=== PATIENT | female | born 1935 | race Caucasian/White ===

== ENCOUNTER 2016-05-02 09:14 | Emergency (ER) | payer MEDICARE ==
[~2016-05-02] VITALS: Ht 162.6 cm; Wt 70.8 kg
[~2016-05-02 09:14] MED LIST: /ATOR40TA OR; CARI350T OR; COLA100C2 OR; GLUC850T OR; IBUP600T OR; LISI40TA OR; MILKSUS OR; TRAM50TA2 OR; VITA50TA12 OR
[2016-05-02] MEDS ORDERED: LOTRISONE CREAM 15 GM (BETAMETH/CLOTRIMAZOLE) TOP ONE (10:00)
--- NOTE | 2016-05-02 10:05 | EDDOCDS ---
Nurse's Notes [facility] Name: Zhane Garnica Age: 80 yrs Sex: Female : 1935 Arrival Date: 05/02/2016 Time: 09:14 Bed Triage 2 Private MD: NO PRIMARY PHYSICIAN, . Diagnosis: Tinea corporis-OVER RIGHT LOWER ABDOMEN Presentation: 05/02 09:18 Presenting complaint: Patient states: abdominal itching which began last night. Reports kr3 low abdomen is red. Adult Sepsis Screening: The patient does not have new or worsening altered mentation. Patient's respiratory rate is less than 22. Systolic blood pressure is greater than 100. Patient has a qSOFA score of 0- Negative Sepsis Screen. Suicide/Homicide risk assessment- the patient denies having any suicidal and/or homicidal ideations and does not present with any other emotional, behavioral or mental health complaints. Status: Patient is not a center sales and service associate or dependent. Transition of care: patient was not received from another setting of care. 09:18 Method Of Arrival: Walkin/Carried/Asstd kr3 09:18 Acuity: MARTA Level 4 kr3 Triage Assessment: 09:21 General: Appears in no apparent distress, comfortable, Behavior is cooperative. Pain: kr3 Denies pain. Respiratory: Respiratory effort is even, unlabored. Derm: Reports itching. Historical: - Allergies: no known allergies; - Home Meds: 1. metformin 500 mg Oral tab three times a day 2. fosinopril 40 mg oral tab 1 tab once daily 3. atorvastatin 80 mg oral tab 1 tab once daily - PMHx: Diabetes - NIDDM: controlled; Hypercholesterolemia; Hypertension; - PSHx: Cholecystectomy; Hysterectomy; - Social history: Smoking status: Patient uses tobacco products, current every day smoker. No barriers to communication noted, The patient speaks fluent Australian, Speaks appropriately for age. - Family history: Not pertinent. - : The pt / caregiver states he / she is not on anticoagulants. Home medication list is obtained from family members. - Exposure Risk Screening:: None identified. Screenin:03 Screening information is obtained from the patient. Fall risk: No risks identified. dsf Assistance ADL's: requires no assistance with activities of daily living. Abuse/DV Screen: The patient / caregiver reports he/she is: not in a situation that causes fear, pain or injury. Nutritional screening: No deficits noted. Advance Directives: Currently, there is a health care proxy, Evelin Cruz daughter . home support is adequate. Vital Signs: 09:16 BP 199 / 96; Pulse 69; Resp 16; Temp 98.0; Pulse Ox 98% ; Weight 70.76 kg; Height 5 ft. elp 4 in. (162.56 cm); Pain 0/10; 09:26 BP 170 / 100 LA (man/); kr3 09:16 Body Mass Index 26.78 (70.76 kg, 162.56 cm) elp Vitals: 09:16 Log In Time: May 02, 2016 at 09:14. elp ED Course: 09:16 Patient visited by Anh Mack PCA. elp 09:16 NO PRIMARY PHYSICIAN, . is Private Physician. elp 09:16 Patient visited by Anh Mack, HAWK. elp 09:16 Patient moved to Waiting elp 09:16 Patient moved to Pre RCE elp 09:19 Triage Initiated kr3 09:22 Patient moved to Triage 2 kr3 09:30 [facility] Milan [facility]. dt4 09:30 Jory Rueda MD is Attending Physician. dt4 09:30 Patient visited by Jada Milan PA-C. dt4 09:44 [facility] Payment Agreement was scanned into [employer] and attached to record. mpb 09:55 [facility] is Referral Physician. dt4 10:04 The patient / caregiver is instructed regarding the plan of care and ED course. dsf 10:04 No IV's were initiated during this patient's visit. No procedures done that require dsf assistance. Administered Medications: 10:05 Drug: Clotrimazole-Betamethasone Cream 1 %-0.05 % 1 applic Route: Topical; Site: dsf affected area; Order Results: There are currently no results for this order. Outcome: 09:56 Discharge ordered by Provider. dt4 10:04 No special radiology studies were completed. Property sent home with patient. dsf 10:04 Discharge Assessment: Patient awake, alert and oriented x 3. No cognitive and/or dsf functional deficits noted. Patient verbalized understanding of disposition instructions. patient administered narcotics - no. The following High Risk Discharge criteria are identified: None. Discharged to home ambulatory, with family. Condition: stable. Discharge instructions given to patient, Instructed on discharge instructions, follow up and referral plans. medication usage, Demonstrated understanding of instructions, medications, Pt was receptive of discharge instructions/ teaching. Prescriptions given X 1. 10:05 Patient left the ED. dsf Signatures: Vaishali Zamora,RN RN kr3 Bettina VivasRN RN dsf Anh Mack, HAWK CHEESE SUPERVISOR elp Jada Milan, PAYaz PAYaz dt4 Nando Shipman, Reg Reg mpb MTDD
--- NOTE | 2016-05-02 10:05 | EDDOCDS ---
Physician Documentation [facility] Name: Zhane Garnica Age: 80 yrs Sex: Female : 1935 Arrival Date: 05/02/2016 Time: 09:14 Bed Triage 2 Private MD: NO PRIMARY PHYSICIAN, . Disposition: 05/02/16 09:56 Discharged to Home/Self Care. Impression: Tinea corporis - OVER RIGHT LOWER ABDOMEN. - Condition is Stable. - Discharge Instructions: Cutaneous Candidiasis. - Prescriptions for clotrimazole- betamethasone 1-0.05 % Topical cream - apply 1 application by TOPICAL route 2 times per day for 14 days APPLY THIN LAYER TO AFFECTED AREA ONLY. WASH HANDS BEFORE AND AFTER USE.; 1 tube. - Medication Reconciliation, Local Pharmacy Hours form. - Follow up: Emergency Department; When: As needed; Reason: Worsening of conditions. Follow up: [facility]; When: Call to arrange an appointment; Reason: Wound/Symptom Recheck, Recheck today's complaints, Continuance of care, To establish care. - Problem is new. - Symptoms are unchanged. Historical: - Allergies: no known allergies; - Home Meds: 1. metformin 500 mg Oral tab three times a day 2. fosinopril 40 mg oral tab 1 tab once daily 3. atorvastatin 80 mg oral tab 1 tab once daily - PMHx: Diabetes - NIDDM: controlled; Hypercholesterolemia; Hypertension; - PSHx: Cholecystectomy; Hysterectomy; - Social history: Smoking status: Patient uses tobacco products, current every day smoker. No barriers to communication noted, The patient speaks fluent Croatian, Speaks appropriately for age. - Family history: Not pertinent. - : The pt / caregiver states he / she is not on anticoagulants. Home medication list is obtained from family members. - Exposure Risk Screening:: None identified. Vital Signs: 05/02 09:16 BP 199 / 96; Pulse 69; Resp 16; Temp 98.0; Pulse Ox 98% ; Weight 70.76 kg / 156 lbs; elp Height 5 ft. 4 in. (162.56 cm); Pain 0/10; 09:26 BP 170 / 100 LA (man/); kr3 09:16 Body Mass Index 26.78 (70.76 kg, 162.56 cm) elp MDM: 09:22 Recheck B/P ordered. dt4 09:39 Clotrimazole-Betamethasone Cream 1 %-0.05 % 1 applic Topical once; MAY NEED TO CALL dt4 PHARMACY ordered. 09:43 Financial registration complete. mpb 09:44 [facility] Payment Agreement was scanned into [employer] and attached to record. mpb Administered Medications: 10:05 Drug: Clotrimazole-Betamethasone Cream 1 %-0.05 % 1 applic Route: Topical; Site: f affected area; Signatures: Vaishali Zamora,RN RN kr3 Bettina Vivas RN RN dsf Jada Milan, PA-C PA-C dt4 Nando Shipman Reg Reg mpb The chart was reviewed and I authenticate all verbal orders and agree with the evaluation and treatment provided.Attachments: 09:44 [facility] Payment Agreement mpb MTDD
--- NOTE | 2016-05-04 12:38 | EDDOCDS ---
Nurse's Notes [facility] Name: Zhane Garnica Age: 80 yrs Sex: Female : 1935 Arrival Date: 05/02/2016 Time: 09:14 Bed Triage 2 Private MD: NO PRIMARY PHYSICIAN, . Diagnosis: Tinea corporis-OVER RIGHT LOWER ABDOMEN Presentation: 05/02 09:18 Presenting complaint: Patient states: abdominal itching which began last night. Reports kr3 low abdomen is red. Adult Sepsis Screening: The patient does not have new or worsening altered mentation. Patient's respiratory rate is less than 22. Systolic blood pressure is greater than 100. Patient has a qSOFA score of 0- Negative Sepsis Screen. Suicide/Homicide risk assessment- the patient denies having any suicidal and/or homicidal ideations and does not present with any other emotional, behavioral or mental health complaints. Status: Patient is not a director of customer service or dependent. Transition of care: patient was not received from another setting of care. 09:18 Method Of Arrival: Walkin/Carried/Asstd kr3 09:18 Acuity: MARTA Level 4 kr3 Triage Assessment: 09:21 General: Appears in no apparent distress, comfortable, Behavior is cooperative. Pain: kr3 Denies pain. Respiratory: Respiratory effort is even, unlabored. Derm: Reports itching. Historical: - Allergies: no known allergies; - Home Meds: 1. metformin 500 mg Oral tab three times a day 2. fosinopril 40 mg oral tab 1 tab once daily 3. atorvastatin 80 mg oral tab 1 tab once daily - PMHx: Diabetes - NIDDM: controlled; Hypercholesterolemia; Hypertension; - PSHx: Cholecystectomy; Hysterectomy; - Social history: Smoking status: Patient uses tobacco products, current every day smoker. No barriers to communication noted, The patient speaks fluent Georgian, Speaks appropriately for age. - Family history: Not pertinent. - : The pt / caregiver states he / she is not on anticoagulants. Home medication list is obtained from family members. - Exposure Risk Screening:: None identified. Screenin:03 Screening information is obtained from the patient. Fall risk: No risks identified. dsf Assistance ADL's: requires no assistance with activities of daily living. Abuse/DV Screen: The patient / caregiver reports he/she is: not in a situation that causes fear, pain or injury. Nutritional screening: No deficits noted. Advance Directives: Currently, there is a health care proxy, Evelin Cruz daughter . home support is adequate. Vital Signs: 09:16 BP 199 / 96; Pulse 69; Resp 16; Temp 98.0; Pulse Ox 98% ; Weight 70.76 kg; Height 5 ft. elp 4 in. (162.56 cm); Pain 0/10; 09:26 BP 170 / 100 LA (man/); kr3 09:16 Body Mass Index 26.78 (70.76 kg, 162.56 cm) elp Vitals: 09:16 Log In Time: May 02, 2016 at 09:14. elp ED Course: 09:16 Patient visited by Anh Mack PCA. elp 09:16 NO PRIMARY PHYSICIAN, . is Private Physician. elp 09:16 Patient visited by Anh Mack, HAWK. elp 09:16 Patient moved to Waiting elp 09:16 Patient moved to Pre RCE elp 09:19 Triage Initiated kr3 09:22 Patient moved to Triage 2 kr3 09:30 Jada Milan [facility]. dt4 09:30 Jory Rueda MD is Attending Physician. dt4 09:30 Patient visited by Jada Milan PA-C. dt4 09:44 [facility] Payment Agreement was scanned into [employer] and attached to record. mpb 09:55 [facility] is Referral Physician. dt4 10:04 The patient / caregiver is instructed regarding the plan of care and ED course. dsf 10:04 No IV's were initiated during this patient's visit. No procedures done that require dsf assistance. 10:38 T-Sheet-- Draft Copy was scanned into [employer] and attached to record. [facility] Administered Medications: 10:05 Drug: Clotrimazole-Betamethasone Cream 1 %-0.05 % 1 applic Route: Topical; Site: dsf affected area; Order Results: There are currently no results for this order. Outcome: 09:56 Discharge ordered by Provider. dt4 10:04 No special radiology studies were completed. Property sent home with patient. dsf 10:04 Discharge Assessment: Patient awake, alert and oriented x 3. No cognitive and/or dsf functional deficits noted. Patient verbalized understanding of disposition instructions. patient administered narcotics - no. The following High Risk Discharge criteria are identified: None. Discharged to home ambulatory, with family. Condition: stable. Discharge instructions given to patient, Instructed on discharge instructions, follow up and referral plans. medication usage, Demonstrated understanding of instructions, medications, Pt was receptive of discharge instructions/ teaching. Prescriptions given X 1. 10:05 Patient left the ED. dsf Signatures: Vaishali Zamora,RN RN kr3 Bettina Vivas RN RN dsf Anh Mack, RESIDENTIAL PROPERTY CONSULTANT RESIDENTIAL PROPERTY CONSULTANT elp Jada Milan, PA-C PA-C dt4 Nando Shipman, Reg Reg mpb Coleen Stewart Chart Complete MTDD
--- NOTE | 2016-05-04 12:38 | EDDOCDS ---
Physician Documentation [facility] Name: Zhane Garnica Age: 80 yrs Sex: Female : 1935 Arrival Date: 05/02/2016 Time: 09:14 Bed Triage 2 Private MD: NO PRIMARY PHYSICIAN, . Disposition: 05/02/16 09:56 Discharged to Home/Self Care. Impression: Tinea corporis - OVER RIGHT LOWER ABDOMEN. - Condition is Stable. - Discharge Instructions: Cutaneous Candidiasis. - Prescriptions for clotrimazole- betamethasone 1-0.05 % Topical cream - apply 1 application by TOPICAL route 2 times per day for 14 days APPLY THIN LAYER TO AFFECTED AREA ONLY. WASH HANDS BEFORE AND AFTER USE.; 1 tube. - Medication Reconciliation, Local Pharmacy Hours form. - Follow up: Emergency Department; When: As needed; Reason: Worsening of conditions. Follow up: [facility]; When: Call to arrange an appointment; Reason: Wound/Symptom Recheck, Recheck today's complaints, Continuance of care, To establish care. - Problem is new. - Symptoms are unchanged. Historical: - Allergies: no known allergies; - Home Meds: 1. metformin 500 mg Oral tab three times a day 2. fosinopril 40 mg oral tab 1 tab once daily 3. atorvastatin 80 mg oral tab 1 tab once daily - PMHx: Diabetes - NIDDM: controlled; Hypercholesterolemia; Hypertension; - PSHx: Cholecystectomy; Hysterectomy; - Social history: Smoking status: Patient uses tobacco products, current every day smoker. No barriers to communication noted, The patient speaks fluent Bulgarian, Speaks appropriately for age. - Family history: Not pertinent. - : The pt / caregiver states he / she is not on anticoagulants. Home medication list is obtained from family members. - Exposure Risk Screening:: None identified. Vital Signs: 05/02 09:16 BP 199 / 96; Pulse 69; Resp 16; Temp 98.0; Pulse Ox 98% ; Weight 70.76 kg / 156 lbs; elp Height 5 ft. 4 in. (162.56 cm); Pain 0/10; 09:26 BP 170 / 100 LA (man/); kr3 09:16 Body Mass Index 26.78 (70.76 kg, 162.56 cm) elp MDM: 09:22 Recheck B/P ordered. dt4 09:39 Clotrimazole-Betamethasone Cream 1 %-0.05 % 1 applic Topical once; MAY NEED TO CALL dt4 PHARMACY ordered. 09:43 Financial registration complete. mpb 09:44 [facility] Payment Agreement was scanned into [employer] and attached to record. mpb 10:38 T-Sheet-- Draft Copy was scanned into [employer] and attached to record. [facility] Administered Medications: 10:05 Drug: Clotrimazole-Betamethasone Cream 1 %-0.05 % 1 applic Route: Topical; Site: f affected area; Signatures: aVishali ZamoraRN RN kr3 Bettina VivasRN RN dsf Jada Milan PA-C PA-C dt4 Nando Shipman, Coleen Meyers The chart was reviewed and I authenticate all verbal orders and agree with the evaluation and treatment provided.Attachments: 09:44 [facility] Payment Agreement mpb 10:38 T-Sheet-- Draft Copy [facility] Chart Complete MTDD
--- NOTE | 2016-05-04 12:38 | EDDOCDS ---
Physician Documentation [facility] Name: Zhane Garnica Age: 80 yrs Sex: Female : 1935 Arrival Date: 05/02/2016 Time: 09:14 Bed Triage 2 Private MD: NO PRIMARY PHYSICIAN, . Disposition: 05/02/16 09:56 Discharged to Home/Self Care. Impression: Tinea corporis - OVER RIGHT LOWER ABDOMEN. - Condition is Stable. - Discharge Instructions: Cutaneous Candidiasis. - Prescriptions for clotrimazole- betamethasone 1-0.05 % Topical cream - apply 1 application by TOPICAL route 2 times per day for 14 days APPLY THIN LAYER TO AFFECTED AREA ONLY. WASH HANDS BEFORE AND AFTER USE.; 1 tube. - Medication Reconciliation, Local Pharmacy Hours form. - Follow up: Emergency Department; When: As needed; Reason: Worsening of conditions. Follow up: [facility]; When: Call to arrange an appointment; Reason: Wound/Symptom Recheck, Recheck today's complaints, Continuance of care, To establish care. - Problem is new. - Symptoms are unchanged. Historical: - Allergies: no known allergies; - Home Meds: 1. metformin 500 mg Oral tab three times a day 2. fosinopril 40 mg oral tab 1 tab once daily 3. atorvastatin 80 mg oral tab 1 tab once daily - PMHx: Diabetes - NIDDM: controlled; Hypercholesterolemia; Hypertension; - PSHx: Cholecystectomy; Hysterectomy; - Social history: Smoking status: Patient uses tobacco products, current every day smoker. No barriers to communication noted, The patient speaks fluent Yoruba, Speaks appropriately for age. - Family history: Not pertinent. - : The pt / caregiver states he / she is not on anticoagulants. Home medication list is obtained from family members. - Exposure Risk Screening:: None identified. Vital Signs: 05/02 09:16 BP 199 / 96; Pulse 69; Resp 16; Temp 98.0; Pulse Ox 98% ; Weight 70.76 kg / 156 lbs; elp Height 5 ft. 4 in. (162.56 cm); Pain 0/10; 09:26 BP 170 / 100 LA (man/); kr3 09:16 Body Mass Index 26.78 (70.76 kg, 162.56 cm) elp MDM: 09:22 Recheck B/P ordered. dt4 09:39 Clotrimazole-Betamethasone Cream 1 %-0.05 % 1 applic Topical once; MAY NEED TO CALL dt4 PHARMACY ordered. 09:43 Financial registration complete. mpb 09:44 [facility] Payment Agreement was scanned into [employer] and attached to record. mpb 10:38 T-Sheet-- Draft Copy was scanned into [employer] and attached to record. [facility] Administered Medications: 10:05 Drug: Clotrimazole-Betamethasone Cream 1 %-0.05 % 1 applic Route: Topical; Site: f affected area; Signatures: Vaishali ZamoraRN RN kr3 Bettina VivasRN RN dsf Jada Milan PA-C PA-C dt4 Nando Shipman, Coleen Meyers The chart was reviewed and I authenticate all verbal orders and agree with the evaluation and treatment provided.Attachments: 09:44 [facility] Payment Agreement mpb 10:38 T-Sheet-- Draft Copy [facility] Chart Complete MTDD
== END 2016-05-02 10:05 | disposition home or self-care (01) ==
LOC: M ED 09:14
DX: B35.4 Tinea corporis (principal); E11.9 Type 2 diabetes mellitus without complications; E78.00 Pure hypercholesterolemia, unspecified; I10 Essential (primary) hypertension; F17.210 Nicotine dependence, cigarettes, uncomplicated; Z79.84 Long term (current) use of oral hypoglycemic drugs; Z79.899 Other long term (current) drug therapy

== ENCOUNTER → 2016-05-17 | Outpatient (REF) | payer MEDICARE | LOC: M SFHCPLAZ 09:12 | PROVIDERS: ATTEND Family Medicine | DX: R30.0 Dysuria (principal); E11.9 Type 2 diabetes mellitus without complications; E78.5 Hyperlipidemia, unspecified; I10 Essential (primary) hypertension | CPT/HCPCS: 81001; 87086; G0463 ==

== ENCOUNTER 2016-06-05 08:09 | Emergency (ER) | payer MEDICARE ==
--- NOTE | 2016-06-05 09:27 | EDDOCDS ---
Nurse's Notes [facility] Name: Zhane Garnica Age: 80 yrs Sex: Female : 1935 Arrival Date: 06/05/2016 Time: 08:09 Bed I4 / M4 Private MD: Diagnosis: Cellulitis of abdominal wall-intertrigo Presentation: 06/05 08:14 Presenting complaint: Patient states: Recent treatment for a yeast infection. Not ck1 getting any better. Adult Sepsis Screening: The patient does not have new or worsening altered mentation. Patient's respiratory rate is less than 22. Systolic blood pressure is greater than 100. Patient has a qSOFA score of 0- Negative Sepsis Screen. Suicide/Homicide risk assessment- the patient denies having any suicidal and/or homicidal ideations and does not present with any other emotional, behavioral or mental health complaints. Status: Patient is not a claims service adjustor or dependent. Transition of care: patient was not received from another setting of care. 08:14 Acuity: MARTA Level 4 ck1 08:14 Method Of Arrival: Walkin/Carried/Asstd ck1 Triage Assessment: 08:17 General: Appears uncomfortable. Pain: Location: groin Pain currently is 10 out of 10 on ck1 a pain scale. Neurological: No deficits noted. : Reports pain vaginal itching. Derm: Skin is intact, is healthy with good turgor, Skin is pink, warm & dry. Musculoskeletal: Circulation, motion, and sensation intact Range of motion intact in all extremities. Historical: - Allergies: No known drug Allergies; - Home Meds: 1. atorvastatin 80 mg oral tab 1 tab once daily 2. metformin 500 mg Oral tab three times a day 3. fosinopril 40 mg oral tab 1 tab once daily - PMHx: Diabetes - NIDDM: controlled; Hypercholesterolemia; Hypertension; - PSHx: Cholecystectomy; Hysterectomy; - Social history: Smoking status: Patient uses tobacco products, heavy tobacco smoker. No barriers to communication noted, The patient speaks fluent Frisian, Speaks appropriately for age. - Family history: Not pertinent. - : The pt / caregiver states he / she is not on anticoagulants. Home medication list is obtained from the patient. - Exposure Risk Screening:: None identified. Screenin:23 Screening information is obtained from the patient. Primary language is Frisian. Fall dls risk: No risks identified. Assistance ADL's: requires no assistance with activities of daily living. Abuse/DV Screen: The patient / caregiver reports he/she is: not in a situation that causes fear, pain or injury. Nutritional screening: No deficits noted. Advance Directives: Currently, there is no health care proxy. There is no active DNR order. There is no living will. There is no Power of Technical Sales Associate. Advance directive information has not previously been placed in an [facility] medical record. home support is adequate. Assessment: 09:23 General: Appears in no apparent distress, Behavior is cooperative. Awake, alert, dls oriented. Skin warm and dry. Moves all extremities. Bilateral breath sounds clear. Respirations unlabored. Abdomen soft, non-tender. No apparent distress. The patient / caregiver is instructed regarding the plan of care and ED course. Vital Signs: 08:14 BP 138 / 72; Pulse 79; Resp 18; Temp 98.3(O); Pulse Ox 98% on R/A; Weight 77.11 kg; ck1 Height 5 ft. 4 in. (162.56 cm); Pain 10/10; 08:14 Body Mass Index 29.18 (77.11 kg, 162.56 cm) ck1 Vitals: 08:14 Log In Time: June 05, 2016 at 08:08. ck1 ED Course: 08:11 Patient visited by Kasandra Valdes. mm15 08:11 Patient moved to Waiting mm15 08:14 Triage Initiated ck1 08:18 Patient moved to I4 / M4 ck1 08:46 Vin[facility] Haas [facility] cc10 08:46 Jory Rueda MD is Attending Physician. cc10 08:58 Patient visited by Vinay Haas PA-C. cc10 08:58 Patient visited by Vinay Haas PA-C. cc10 09:17 [facility] Payment Agreement was scanned into [employer] and attached to record. gb 09:25 Accompanied by Family Member, Patient has correct armband on for positive dls identification. Bed in low position. Call light in reach. 09:25 No IV's were initiated during this patient's visit. No procedures done that require dls assistance. Order Results: There are currently no results for this order. Outcome: 09:13 Discharge ordered by Provider. cc10 09:23 The following High Risk Discharge criteria are identified: None. Discharged to home dls ambulatory. Condition: stable. Discharge instructions given to patient, Instructed on discharge instructions, follow up and referral plans. medication usage, Demonstrated understanding of instructions, medications, Pt was receptive of discharge instructions/ teaching. Prescriptions given X 2. No special radiology studies were completed. 09:25 Discharge Assessment: Patient awake, alert and oriented x 3. No cognitive and/or dls functional deficits noted. Patient verbalized understanding of disposition instructions. patient administered narcotics - no. Property sent home with patient. 09:25 Patient left the ED. dls Signatures: Shirley Echavarria, RN RN dls Barbara Ortiz, Reg Reg gb Marie Mendoza,RN RN ck1 Kasandra Valdes mm15 Vinay Haas, PA-C PA-C cc10 AYLA
--- NOTE | 2016-06-05 09:27 | EDDOCDS ---
Physician Documentation [facility] Name: Zhane Garnica Age: 80 yrs Sex: Female : 1935 Arrival Date: 06/05/2016 Time: 08:09 Bed I4 / M4 Private MD: Disposition: 06/05/16 09:13 Discharged to Home/Self Care. Impression: Cellulitis of abdominal wall - intertrigo. - Condition is Stable. - Discharge Instructions: Intertrigo, [id number]. - Prescriptions for Keflex 500 mg Oral Capsule - take 1 capsule by ORAL route every 8 hours for 10 days; 30 capsule. Nystatin- Triamcinolone 100,000-0.1 unit/g-% Topical Cream - apply 1 application by TOPICAL route 2 times per day apply to abdominal skin folds as directed.; 1 tube. - Medication Reconciliation, Local Pharmacy Hours form. - Follow up: Emergency Department; When: As needed; Reason: Worsening of conditions. Follow up: Private Physician; When: Call to arrange an appointment; Reason: Wound/Symptom Recheck, Recheck today's complaints, Worsening of conditions, Continuance of care. - Problem is an acute exacerbation. - Symptoms are unchanged. Historical: - Allergies: No known drug Allergies; - Home Meds: 1. atorvastatin 80 mg oral tab 1 tab once daily 2. metformin 500 mg Oral tab three times a day 3. fosinopril 40 mg oral tab 1 tab once daily - PMHx: Diabetes - NIDDM: controlled; Hypercholesterolemia; Hypertension; - PSHx: Cholecystectomy; Hysterectomy; - Social history: Smoking status: Patient uses tobacco products, heavy tobacco smoker. No barriers to communication noted, The patient speaks fluent Tajik, Speaks appropriately for age. - Family history: Not pertinent. - : The pt / caregiver states he / she is not on anticoagulants. Home medication list is obtained from the patient. - Exposure Risk Screening:: None identified. Vital Signs: 06/05 08:14 BP 138 / 72; Pulse 79; Resp 18; Temp 98.3(O); Pulse Ox 98% on R/A; Weight 77.11 kg / ck1 170 lbs; Height 5 ft. 4 in. (162.56 cm); Pain 10/10; 08:14 Body Mass Index 29.18 (77.11 kg, 162.56 cm) ck1 MDM: 09:07 Financial registration complete. gb 09:17 [facility] Payment Agreement was scanned into [employer] and attached to record. Signatures: Shirley Echavarria RN RN dls Barbara Ortiz, Reg Reg gb Marie Mendoza RN RN ck1 Vinay Haas, PAIvaC PAYaz cc10 The chart was reviewed and I authenticate all verbal orders and agree with the evaluation and treatment provided.Attachments: 09:17 [facility] Payment Agreement gb MTDD
--- NOTE | 2016-06-07 10:27 | EDDOCDS ---
Nurse's Notes [facility] Name: Zhane Garnica Age: 80 yrs Sex: Female : 1935 Arrival Date: 06/05/2016 Time: 08:09 Bed I4 / M4 Private MD: Diagnosis: Cellulitis of abdominal wall-intertrigo Presentation: 06/05 08:14 Presenting complaint: Patient states: Recent treatment for a yeast infection. Not ck1 getting any better. Adult Sepsis Screening: The patient does not have new or worsening altered mentation. Patient's respiratory rate is less than 22. Systolic blood pressure is greater than 100. Patient has a qSOFA score of 0- Negative Sepsis Screen. Suicide/Homicide risk assessment- the patient denies having any suicidal and/or homicidal ideations and does not present with any other emotional, behavioral or mental health complaints. Status: Patient is not a social services counselor or dependent. Transition of care: patient was not received from another setting of care. 08:14 Acuity: MARTA Level 4 ck1 08:14 Method Of Arrival: Walkin/Carried/Asstd ck1 Triage Assessment: 08:17 General: Appears uncomfortable. Pain: Location: groin Pain currently is 10 out of 10 on ck1 a pain scale. Neurological: No deficits noted. : Reports pain vaginal itching. Derm: Skin is intact, is healthy with good turgor, Skin is pink, warm & dry. Musculoskeletal: Circulation, motion, and sensation intact Range of motion intact in all extremities. Historical: - Allergies: No known drug Allergies; - Home Meds: 1. atorvastatin 80 mg oral tab 1 tab once daily 2. metformin 500 mg Oral tab three times a day 3. fosinopril 40 mg oral tab 1 tab once daily - PMHx: Diabetes - NIDDM: controlled; Hypercholesterolemia; Hypertension; - PSHx: Cholecystectomy; Hysterectomy; - Social history: Smoking status: Patient uses tobacco products, heavy tobacco smoker. No barriers to communication noted, The patient speaks fluent Belarusian, Speaks appropriately for age. - Family history: Not pertinent. - : The pt / caregiver states he / she is not on anticoagulants. Home medication list is obtained from the patient. - Exposure Risk Screening:: None identified. Screenin:23 Screening information is obtained from the patient. Primary language is Belarusian. Fall dls risk: No risks identified. Assistance ADL's: requires no assistance with activities of daily living. Abuse/DV Screen: The patient / caregiver reports he/she is: not in a situation that causes fear, pain or injury. Nutritional screening: No deficits noted. Advance Directives: Currently, there is no health care proxy. There is no active DNR order. There is no living will. 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 Advance directive information has not previously been placed in an [facility] medical record. home support is adequate. Assessment: 09:23 General: Appears in no apparent distress, Behavior is cooperative. Awake, alert, dls oriented. Skin warm and dry. Moves all extremities. Bilateral breath sounds clear. Respirations unlabored. Abdomen soft, non-tender. No apparent distress. The patient / caregiver is instructed regarding the plan of care and ED course. Vital Signs: 08:14 BP 138 / 72; Pulse 79; Resp 18; Temp 98.3(O); Pulse Ox 98% on R/A; Weight 77.11 kg; ck1 Height 5 ft. 4 in. (162.56 cm); Pain 10/10; 08:14 Body Mass Index 29.18 (77.11 kg, 162.56 cm) ck1 Vitals: 08:14 Log In Time: June 05, 2016 at 08:08. ck1 ED Course: 08:11 Patient visited by Kasandra Valdes. mm15 08:11 Patient moved to Waiting mm15 08:14 Triage Initiated ck1 08:18 Patient moved to I4 / M4 ck1 08:46 [facility] cc10 08:46 Jory Rueda MD is Attending Physician. cc10 08:58 Patient visited by Vinay Haas PA-C. cc10 08:58 Patient visited by iVnay Haas PA-C. cc10 09:17 [facility] Agreement was scanned into [employer] and attached to record. gb 09:25 Accompanied by Family Member, Patient has correct armband on for positive dls identification. Bed in low position. Call light in reach. 09:25 No IV's were initiated during this patient's visit. No procedures done that require dls assistance. 17:17 T-Sheet-- Draft Copy was scanned into [employer] and attached to record. klr Order Results: There are currently no results for this order. Outcome: 09:13 Discharge ordered by Provider. cc10 09:23 The following High Risk Discharge criteria are identified: None. Discharged to home dls ambulatory. Condition: stable. Discharge instructions given to patient, Instructed on discharge instructions, follow up and referral plans. medication usage, Demonstrated understanding of instructions, medications, Pt was receptive of discharge instructions/ teaching. Prescriptions given X 2. No special radiology studies were completed. 09:25 Discharge Assessment: Patient awake, alert and oriented x 3. No cognitive and/or dls functional deficits noted. Patient verbalized understanding of disposition instructions. patient administered narcotics - no. Property sent home with patient. 09:25 Patient left the ED. dls Signatures: Shirley cEhavarria, RN RN dls Barbara Ortiz, Nabil Reg Marie MendozaRN RN ck1 Kasandra Valdes mm15 Vinay Haas, PA-C PA-Cain cc10 Annabelle Foster Chart Complete MTDD
--- NOTE | 2016-06-07 10:27 | EDDOCDS ---
Physician Documentation [facility] Name: Zhane Garnica Age: 80 yrs Sex: Female : 1935 Arrival Date: 06/05/2016 Time: 08:09 Bed I4 / M4 Private MD: Disposition: 06/05/16 09:13 Discharged to Home/Self Care. Impression: Cellulitis of abdominal wall - intertrigo. - Condition is Stable. - Discharge Instructions: Intertrigo, [id number]. - Prescriptions for Keflex 500 mg Oral Capsule - take 1 capsule by ORAL route every 8 hours for 10 days; 30 capsule. Nystatin- Triamcinolone 100,000-0.1 unit/g-% Topical Cream - apply 1 application by TOPICAL route 2 times per day apply to abdominal skin folds as directed.; 1 tube. - Medication Reconciliation, Local Pharmacy Hours form. - Follow up: Emergency Department; When: As needed; Reason: Worsening of conditions. Follow up: Private Physician; When: Call to arrange an appointment; Reason: Wound/Symptom Recheck, Recheck today's complaints, Worsening of conditions, Continuance of care. - Problem is an acute exacerbation. - Symptoms are unchanged. Historical: - Allergies: No known drug Allergies; - Home Meds: 1. atorvastatin 80 mg oral tab 1 tab once daily 2. metformin 500 mg Oral tab three times a day 3. fosinopril 40 mg oral tab 1 tab once daily - PMHx: Diabetes - NIDDM: controlled; Hypercholesterolemia; Hypertension; - PSHx: Cholecystectomy; Hysterectomy; - Social history: Smoking status: Patient uses tobacco products, heavy tobacco smoker. No barriers to communication noted, The patient speaks fluent Hungarian, Speaks appropriately for age. - Family history: Not pertinent. - : The pt / caregiver states he / she is not on anticoagulants. Home medication list is obtained from the patient. - Exposure Risk Screening:: None identified. Vital Signs: 06/05 08:14 BP 138 / 72; Pulse 79; Resp 18; Temp 98.3(O); Pulse Ox 98% on R/A; Weight 77.11 kg / ck1 170 lbs; Height 5 ft. 4 in. (162.56 cm); Pain 10/10; 08:14 Body Mass Index 29.18 (77.11 kg, 162.56 cm) ck1 MDM: 09:07 Financial registration complete. gb : [facility] Payment Agreement was scanned into [employer] and attached to record. gb 17:17 T-Sheet-- Draft Copy was scanned into [employer] and attached to record. klr Signatures: Shirley Echavarria RN RN dls Barbara Ortiz, Reg Reg gb Fely-Anastasia,PILO Salazar RN ck1 Vinay Haas PA-C PAYaz cc10 Annabelle Fosterr The chart was reviewed and I authenticate all verbal orders and agree with the evaluation and treatment provided.Attachments: : [facility] Payment Agreement gb 17:17 T-Sheet-- Draft Copy klr Chart Complete MTDD
--- NOTE | 2016-06-07 10:27 | EDDOCDS ---
Physician Documentation [facility] Name: Zhane Garnica Age: 80 yrs Sex: Female : 1935 Arrival Date: 06/05/2016 Time: 08:09 Bed I4 / M4 Private MD: Disposition: 06/05/16 09:13 Discharged to Home/Self Care. Impression: Cellulitis of abdominal wall - intertrigo. - Condition is Stable. - Discharge Instructions: Intertrigo, [id number]. - Prescriptions for Keflex 500 mg Oral Capsule - take 1 capsule by ORAL route every 8 hours for 10 days; 30 capsule. Nystatin- Triamcinolone 100,000-0.1 unit/g-% Topical Cream - apply 1 application by TOPICAL route 2 times per day apply to abdominal skin folds as directed.; 1 tube. - Medication Reconciliation, Local Pharmacy Hours form. - Follow up: Emergency Department; When: As needed; Reason: Worsening of conditions. Follow up: Private Physician; When: Call to arrange an appointment; Reason: Wound/Symptom Recheck, Recheck today's complaints, Worsening of conditions, Continuance of care. - Problem is an acute exacerbation. - Symptoms are unchanged. Historical: - Allergies: No known drug Allergies; - Home Meds: 1. atorvastatin 80 mg oral tab 1 tab once daily 2. metformin 500 mg Oral tab three times a day 3. fosinopril 40 mg oral tab 1 tab once daily - PMHx: Diabetes - NIDDM: controlled; Hypercholesterolemia; Hypertension; - PSHx: Cholecystectomy; Hysterectomy; - Social history: Smoking status: Patient uses tobacco products, heavy tobacco smoker. No barriers to communication noted, The patient speaks fluent Urdu, Speaks appropriately for age. - Family history: Not pertinent. - : The pt / caregiver states he / she is not on anticoagulants. Home medication list is obtained from the patient. - Exposure Risk Screening:: None identified. Vital Signs: 06/05 08:14 BP 138 / 72; Pulse 79; Resp 18; Temp 98.3(O); Pulse Ox 98% on R/A; Weight 77.11 kg / ck1 170 lbs; Height 5 ft. 4 in. (162.56 cm); Pain 10/10; 08:14 Body Mass Index 29.18 (77.11 kg, 162.56 cm) ck1 MDM: 09:07 Financial registration complete. gb : [facility] Payment Agreement was scanned into [employer] and attached to record. gb 17:17 T-Sheet-- Draft Copy was scanned into [employer] and attached to record. klr Signatures: Shirley Echavarria RN RN dls Barbara Ortiz, Reg Reg gb Fely-Anastasia,PILO Salazar RN ck1 Vinay Haas PA-C PAYaz cc10 Annabelle Fosterr The chart was reviewed and I authenticate all verbal orders and agree with the evaluation and treatment provided.Attachments: : [facility] Payment Agreement gb 17:17 T-Sheet-- Draft Copy klr Chart Complete MTDD
== END 2016-06-05 09:25 | disposition home or self-care (01) ==
LOC: M ED 08:09
DX: L30.4 Erythema intertrigo (principal); E11.9 Type 2 diabetes mellitus without complications; E78.00 Pure hypercholesterolemia, unspecified; I10 Essential (primary) hypertension; F17.210 Nicotine dependence, cigarettes, uncomplicated; Z79.84 Long term (current) use of oral hypoglycemic drugs; Z79.899 Other long term (current) drug therapy

== ENCOUNTER 2016-08-24 15:03 | Emergency (ER) | payer MEDICARE ==
[~2016-08-24] VITALS: Ht 162.6 cm; Wt 81.6 kg
[2016-08-24] MEDS ORDERED: LABETALOL HCL 100 MG/20 ML VIAL IV STA (15:41)
[2016-08-24 16:22] LABS: BASO % 0.6 % (0.0-1.0); EOS # 0.3 K/mm3 (0.0-0.50); EOS % 4.1 % (0.0-3.0); LARGE UNSTAINED CELL # 0.1 K/mm3 (0.0-0.4); LARGE UNSTAINED CELL % 1.7 % (0.0-4.0); LYMPH # 2.1 K/mm3 (1.5-4.5); LYMPH % 30.3 % (24.0-44.0); MEAN CORPUSCULAR HEMOGLOBIN 32.2 pg (27.0-33.0); MEAN CORPUSCULAR HGB CONC 33.9 g/dl (32.0-36.5); MONO # 0.5 K/mm3 (0.0-0.8); MONO % 7.9 % (0.0-5.0); NEUTROPHILS # 3.7 K/mm3 (1.8-7.7); NEUTROPHILS % 55.4 % (36.0-66.0); PLATELET COUNT, AUTOMATED 201 k/mm3 (150-450); RED CELL DISTRIBUTION WIDTH 14.3 % (11.5-14.5); WHITE BLOOD COUNT 6.6 K/mm3 (4.0-10.0)
--- NOTE | 2016-08-24 16:22 | REP ---
CHEST: Single view of the chest is performed and compared to prior study of 05/30/2015. I see no evidence of acute infiltrate. Cardiomediastinal silhouette is unchanged. There is some tortuosity of the thoracic aorta. The heart does not appear to be significantly enlarged. IMPRESSION: No acute infiltrate. Signed by Baldemar Gillette MD 08/24/2016 07:52 P
[2016-08-24 16:27] LABS: INR 0.93
--- NOTE | 2016-08-24 16:41 | REP ---
CT CERVICAL SPINE WITHOUT CONTRAST: HISTORY: Trauma. There is no acute fracture. Disc bulges are present at the C3-4 and C6-7 levels. Disc bulges with associated osteophyte formation are present at the C4-5 and C5-6 levels. There is minimal narrowing of the spinal canal. Uncinate process and/or facet hypertrophy are present at the C2-3 through C7-T1 levels. These findings produce minimal to moderate narrowing of the neural foramina. The C3-4 through C7-T1 intervertebral discs are decreased in height consistent with disc degeneration. There are 2 mm of anterior subluxation of the C3 on 4, C4 on 5 and C7 on T1. IMPRESSION: 1. There is no acute fracture. 2. There is cervical spondylosis at the C2-3 through C7-1 levels. Signed by Demarcus Yusuf MD 08/24/2016 04:44 P
[2016-08-24 16:42] LABS: ANION GAP 7 MEQ/L (8-16); BLOOD UREA NITROGEN 24 MG/DL (7-18); CALCIUM LEVEL 8.3 MG/DL (8.8-10.2); CARBON DIOXIDE LEVEL 28 MEQ/L (21-32); CHLORIDE LEVEL 108 MEQ/L (98-107); CREATININE FOR GFR 1.43 MG/DL (0.55-1.02); GLOMERULAR FILTRATION RATE 37.5 (>32); GLUCOSE, FASTING 85 MG/DL (83-110); POTASSIUM SERUM 3.7 MEQ/L (3.5-5.1); SODIUM LEVEL 143 MEQ/L (136-145)
--- NOTE | 2016-08-24 16:44 | REP ---
CT HEAD WITHOUT CONTRAST: HISTORY: Trauma. COMPARISON: 03/17/2010. A small 9 mm acute intraparenchymal hematoma is present in the left basal ganglia. Areas of increased attentuation are present in the periventricular and subcortical white matter. This represents small vessel ischemic disease. There is no intraparenchymal mass, or midline shift. The ventricular system and cortical sulci are dilated consistent with moderate volume loss. There is no extracerebral collection. There is no fracture. IMPRESSION: 1. Small 9 mm acute left basal ganglia intraparenchymal hematoma. 2. Small vessel ischemic disease. 3. Moderate volume loss. Results were discussed with Dr. Sargent at 4:20 p.m. this date. Signed by Demarcus Yusuf MD 08/24/2016 04:48 P
[2016-08-24] MEDS ORDERED: ATOR1TAB18 PO (17:04)
[2016-08-24] MEDS ORDERED: FOSI40TA PO (17:04)
[2016-08-24] MEDS ORDERED: METF500T PO (17:04)
[2016-08-24 20:37] VITALS: BP 145/90
--- NOTE | 2016-08-25 08:11 | ECGEPIP ---
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
== END 2016-08-24 20:50 | disposition short-term general hospital (02) ==
LOC: M ED 16:23
DX: I62.9 Nontraumatic intracranial hemorrhage, unspecified (principal); R55 Syncope and collapse; E11.9 Type 2 diabetes mellitus without complications; I10 Essential (primary) hypertension

== ENCOUNTER 2016-11-17 09:14 | Emergency (ER) | payer MEDICARE ==
[~2016-11-17] VITALS: Ht 162.6 cm; Wt 59.1 kg
[~2016-11-17 09:14] MED LIST changes: +ATOR80TA59 PO; +FOSI40TA PO; +METF500T13 PO
[2016-11-17 09:15] VITALS: BP 159/83
[2017-02-23] MEDS ORDERED: MECL-68 PO (11:45)
== END 2016-11-17 11:25 | disposition left against medical advice (07) ==
LOC: M ED 09:14
DX: R30.0 Dysuria (principal); E11.9 Type 2 diabetes mellitus without complications; Z72.0 Tobacco use

== ENCOUNTER 2017-02-22 07:03 | Emergency (ER) | payer MEDICARE ==
[~2017-02-22] VITALS: Ht 162.6 cm; Wt 87.5 kg
[2017-02-22] MEDS ORDERED: NS 1,000 ML IV SCH (07:20)
[2017-02-22] MEDS ORDERED: MECLIZINE 25 MG TABLET PO ONE (07:30)
[2017-02-22] MEDS ORDERED: ONDANSETRON 4MG/2ML VIAL (J2405) IV ONE (07:30)
[2017-02-22 08:01] LABS: BASO % 0.4 % (0.0-1.0); EOS # 0.2 10^3/uL (0.0-0.50); EOS % 2.8 % (0.0-3.0); IMMATURE GRANULOCYTE % 0.4 % (0-0); LYMPH # 2.1 10^3/uL (1.5-4.5); LYMPH % 26.3 % (24.0-44.0); MEAN CORPUSCULAR HEMOGLOBIN 32.2 pg (27.0-33.0); MEAN CORPUSCULAR HGB CONC 33.1 g/dl (32.0-36.5); MEAN CORPUSCULAR VOLUME 97.5 fl (80.0-96.0); MONO # 0.7 10^3/uL (0.0-0.8); MONO % 8.3 % (0.0-5.0); NEUTROPHILS # 4.9 10^3/uL (1.8-7.7); NEUTROPHILS % 61.8 % (36.0-66.0); PLATELET COUNT, AUTOMATED 190 10^3/uL (150-450); RED CELL DISTRIBUTION WIDTH 12.7 % (11.5-14.5)
[2017-02-22 08:14] LABS: INR 0.95
[2017-02-22 08:26] LABS: ALBUMIN 3.4 GM/DL (3.2-5.2); ALBUMIN/GLOBULIN RATIO 1.17 (1.00-1.93); ALKALINE PHOSPHATASE 109 U/L (45-117); ALT/SGPT 16 U/L (12-78); ANION GAP 6 MEQ/L (8-16); AST/SGOT 12 U/L (7-37); BILIRUBIN,DIRECT 0.2 MG/DL (0.0-0.2); BILIRUBIN,TOTAL 0.7 MG/DL (0.2-1.0); BLOOD UREA NITROGEN 22 MG/DL (7-18); CALCIUM LEVEL 8.6 MG/DL (8.8-10.2); CARBON DIOXIDE LEVEL 29 MEQ/L (21-32); CHLORIDE LEVEL 107 MEQ/L (98-107); CREATININE FOR GFR 1.19 MG/DL (0.55-1.02); GLOMERULAR FILTRATION RATE 46.3 (>32); GLUCOSE, FASTING 104 MG/DL (83-110); POTASSIUM SERUM 4.2 MEQ/L (3.5-5.1); SODIUM LEVEL 142 MEQ/L (136-145); TOTAL PROTEIN 6.3 GM/DL (6.4-8.2)
--- NOTE | 2017-02-22 08:44 | REP ---
CT Head without contrast HISTORY: Dizziness COMPARISON: 08/24/2016 An area of decreased attenuation is present in the left basal ganglia. This represents an old hemorrhagic lacunar infarction. Areas of decreased attenuation are present in the periventricular and subcortical white matter. This represents small-vessel ischemic disease. There is no intraparenchymal hemorrhage, acute infarct, mass or midline shift. The ventricular system and cortical sulci are dilated consistent with moderate volume loss. There is no extra cerebral collection. There is no fracture. The visualized sinuses are clear. IMPRESSION: 1. Old left basal ganglia lacunar infarction. 2. Small vessel ischemic disease. 3. Moderate volume loss. Signed by Demarcus Yusuf MD 02/22/2017 08:36 A
--- NOTE | 2017-02-22 09:19 | ECGEPIP ---
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
[2017-02-22] MEDS ORDERED: MECL-68 PO (10:53)
[2017-02-22 12:29] VITALS: BP 172/98
[2017-02-23] MEDS ORDERED: MECL-68 PO (11:45)
== END 2017-02-22 12:34 | disposition home or self-care (01) ==
LOC: EDBD 07:03 → M ED 07:03
DX: R11.10 Vomiting, unspecified (principal); E11.9 Type 2 diabetes mellitus without complications; I10 Essential (primary) hypertension; E78.00 Pure hypercholesterolemia, unspecified; E78.4 Other hyperlipidemia
CPT/HCPCS: 36415; 70450; 80048; 80076; 82550; 82553; 83605; 83690; 84484; 85025; 85610; 86850; 86900; 86901; 93005; 93041; 96374; 99285; J2405

== ENCOUNTER → 2017-08-19 | Outpatient (REF) | payer MEDICARE ==
[2017-08-19 14:18] LABS: APPEARANCE, URINE CLEAR (CLEAR); BACTERIA, URINE AUTO 1+ (NEGATIVE); BILIRUBIN, URINE AUTO NEGATIVE (NEGATIVE); BLOOD, URINE BLOOD NEGATIVE (NEGATIVE); COLOR, URINE YELLOW (YELLOW); GLUCOSE, URINE (UA) AUTO NEGATIVE (NEGATIVE); KETONE, URINE AUTO NEGATIVE (NEGATIVE); LEUKOCYTE ESTERASE, URINE AUTO 3+ (NEGATIVE); NITRITE, URINE AUTO NEGATIVE (NEGATIVE); PROTEIN, URINE AUTO NEGATIVE (NEGATIVE); RBC, URINE AUTO 5 /HPF (0-3); SPECIFIC GRAVITY URINE AUTO 1.012 (1.002-1.035); SQUAMOUS EPITHELIAL CELL UR AU 1 /HPF (0-6); TRANSITIONAL EPITHELIAL AUTO 1 /HPF; UROBILINOGEN, URINE AUTO 0.2 mg/dL (0.0-2.0); WBC, URINE AUTO 90 /HPF (0-3)
== END ==
LOC: M SFHCPLAZ 13:23
DX: R30.9 Painful micturition, unspecified (principal)
CPT/HCPCS: 81001

== ENCOUNTER 2017-08-27 14:04 | Emergency (ER) | payer MEDICARE ==
[2017-08-27 15:07] LABS: BASO % 0.4 % (0.0-1.0); EOS # 0.1 10^3/uL (0.0-0.50); EOS % 1.1 % (0.0-3.0); HEMATOCRIT 33.4 % (36.0-47.0); IMMATURE GRANULOCYTE % 0.4 % (0-3.0); LYMPH # 1.4 10^3/uL (1.5-4.5); LYMPH % 15.1 % (24.0-44.0); MEAN CORPUSCULAR HEMOGLOBIN 31.7 pg (27.0-33.0); MEAN CORPUSCULAR HGB CONC 32.9 g/dl (32.0-36.5); MEAN CORPUSCULAR VOLUME 96.3 fl (80.0-96.0); MONO # 0.7 10^3/uL (0.0-0.8); MONO % 7.7 % (0.0-5.0); NEUTROPHILS # 6.9 10^3/uL (1.8-7.7); NEUTROPHILS % 75.3 % (36.0-66.0); PLATELET COUNT, AUTOMATED 193 10^3/uL (150-450); RED BLOOD COUNT 3.47 10^6/uL (4.00-5.40); WHITE BLOOD COUNT 9.2 10^3/uL (4.0-10.0)
[2017-08-27 15:31] LABS: ALBUMIN 3.4 GM/DL (3.2-5.2); ALBUMIN/GLOBULIN RATIO 1.06 (1.00-1.93); ALKALINE PHOSPHATASE 107 U/L (45-117); ALT/SGPT 14 U/L (12-78); ANION GAP 5 MEQ/L (8-16); AST/SGOT 13 U/L (7-37); BILIRUBIN,DIRECT 0.1 MG/DL (0.0-0.2); BILIRUBIN,TOTAL 0.5 MG/DL (0.2-1.0); BLOOD UREA NITROGEN 29 MG/DL (7-18); CALCIUM LEVEL 8.9 MG/DL (8.8-10.2); CARBON DIOXIDE LEVEL 29 MEQ/L (21-32); CHLORIDE LEVEL 108 MEQ/L (98-107); CREATININE FOR GFR 1.62 MG/DL (0.55-1.30); GLOMERULAR FILTRATION RATE 32.4 (>32); GLUCOSE, FASTING 108 MG/DL (70-100); LIPASE 118 U/L (73-393); POTASSIUM SERUM 4.7 MEQ/L (3.5-5.1); SODIUM LEVEL 142 MEQ/L (136-145); TOTAL PROTEIN 6.6 GM/DL (6.4-8.2)
[2017-08-27] MEDS: NS 500 ML IV (16:00)
[2017-08-27] MEDS: ONDANSETRON 4MG/2ML VIAL (J2405) IV (16:00)
[2017-08-27 16:50] LABS: APPEARANCE, URINE CLEAR (CLEAR); BACTERIA, URINE AUTO NEGATIVE (NEGATIVE); BILIRUBIN, URINE AUTO NEGATIVE (NEGATIVE); BLOOD, URINE BLOOD NEGATIVE (NEGATIVE); COLOR, URINE STRAW (YELLOW); GLUCOSE, URINE (UA) AUTO NEGATIVE (NEGATIVE); KETONE, URINE AUTO NEGATIVE (NEGATIVE); LEUKOCYTE ESTERASE, URINE AUTO NEGATIVE (NEGATIVE); MUCUS, URINE SMALL (NEGATIVE); NITRITE, URINE AUTO NEGATIVE (NEGATIVE); PROTEIN, URINE AUTO NEGATIVE (NEGATIVE); RBC, URINE AUTO 1 /HPF (0-3); SPECIFIC GRAVITY URINE AUTO 1.009 (1.002-1.035); SQUAMOUS EPITHELIAL CELL UR AU 0 /HPF (0-6); UROBILINOGEN, URINE AUTO 0.2 mg/dL (0.0-2.0); WBC, URINE AUTO 0 /HPF (0-3)
[2017-08-27] MEDS: HYDROCORTISONE 1% CREAM 30 GM TOP (17:45)
== END 2017-08-27 18:29 | disposition home or self-care (01) ==
LOC: M ED 14:04
DX: R11.2 Nausea with vomiting, unspecified (principal); R19.7 Diarrhea, unspecified; E11.9 Type 2 diabetes mellitus without complications; I10 Essential (primary) hypertension; M54.9 Dorsalgia, unspecified
CPT/HCPCS: J2405

== ENCOUNTER 2017-08-28 18:03 | Emergency (ER) | payer MEDICARE ==
[2017-08-28 19:52] LABS: BASO % 0.3 % (0.0-1.0); EOS # 0.5 10^3/uL (0.0-0.50); EOS % 5.1 % (0.0-3.0); HEMATOCRIT 33.2 % (36.0-47.0); IMMATURE GRANULOCYTE % 0.2 % (0-3.0); LYMPH # 3.2 10^3/uL (1.5-4.5); LYMPH % 31.3 % (24.0-44.0); MEAN CORPUSCULAR HEMOGLOBIN 31.9 pg (27.0-33.0); MEAN CORPUSCULAR HGB CONC 33.1 g/dl (32.0-36.5); MEAN CORPUSCULAR VOLUME 96.2 fl (80.0-96.0); MONO # 1.1 10^3/uL (0.0-0.8); MONO % 10.4 % (0.0-5.0); NEUTROPHILS # 5.4 10^3/uL (1.8-7.7); NEUTROPHILS % 52.7 % (36.0-66.0); PLATELET COUNT, AUTOMATED 200 10^3/uL (150-450); RED BLOOD COUNT 3.45 10^6/uL (4.00-5.40); RED CELL DISTRIBUTION WIDTH 13.2 % (11.5-14.5); WHITE BLOOD COUNT 10.3 10^3/uL (4.0-10.0)
[2017-08-28 20:15] LABS: ANION GAP 3 MEQ/L (8-16); BLOOD UREA NITROGEN 30 MG/DL (7-18); C REACTIVE PROTEIN QUANTITATIV 1.05 MG/DL (0.00-0.30); CALCIUM LEVEL 8.9 MG/DL (8.8-10.2); CARBON DIOXIDE LEVEL 31 MEQ/L (21-32); CHLORIDE LEVEL 104 MEQ/L (98-107); CREATININE FOR GFR 1.87 MG/DL (0.55-1.30); GLOMERULAR FILTRATION RATE 27.4 (>32); GLUCOSE, FASTING 109 MG/DL (70-100); POTASSIUM SERUM 4.3 MEQ/L (3.5-5.1); SODIUM LEVEL 138 MEQ/L (136-145)
[2017-08-28 20:37] LABS: ERYTHROCYTE SEDIMENTATION RATE 41 mm/hr (0-30)
[2017-08-28] MEDS: predniSONE 20 MG TAB PO (21:43)
[2017-08-28] MEDS: AUGMENTIN 875 MG TAB PO (21:43)
== END 2017-08-28 22:08 | disposition home or self-care (01) ==
LOC: M ED 18:03
DX: K11.20 Sialoadenitis, unspecified (principal); E11.9 Type 2 diabetes mellitus without complications; I10 Essential (primary) hypertension; E78.5 Hyperlipidemia, unspecified; J44.9 Chronic obstructive pulmonary disease, unspecified; K21.9 Gastro-esophageal reflux disease without esophagitis; F17.200 Nicotine dependence, unspecified, uncomplicated; Z79.84 Long term (current) use of oral hypoglycemic drugs; Z79.899 Other long term (current) drug therapy; Z88.1 Allergy status to other antibiotic agents
CPT/HCPCS: 70490

== ENCOUNTER 2017-09-22 18:23 | Emergency (ER) | payer MEDICARE ==
[2017-09-22 19:07] LABS: BASO % 0.2 % (0.0-1.0); EOS # 0.1 10^3/uL (0.0-0.50); HEMATOCRIT 30.5 % (36.0-47.0); HEMOGLOBIN 10.5 g/dl (12.0-15.5); IMMATURE GRANULOCYTE % 0.5 % (0-3.0); LYMPH # 1.5 10^3/uL (1.5-4.5); MEAN CORPUSCULAR HGB CONC 34.4 g/dl (32.0-36.5); MONO # 0.9 10^3/uL (0.0-0.8); MONO % 10.6 % (0.0-5.0); NEUTROPHILS # 5.6 10^3/uL (1.8-7.7); NEUTROPHILS % 69.7 % (36.0-66.0); PLATELET COUNT, AUTOMATED 256 10^3/uL (150-450); RED BLOOD COUNT 3.28 10^6/uL (4.00-5.40); RED CELL DISTRIBUTION WIDTH 12.5 % (11.5-14.5); WHITE BLOOD COUNT 8.1 10^3/uL (4.0-10.0)
[2017-09-22 19:26] LABS: AMORPHOUS SEDIMENT SMALL (NEGATIVE); APPEARANCE, URINE CLOUDY (CLEAR); BACTERIA, URINE AUTO 3+ (NEGATIVE); BILIRUBIN, URINE AUTO NEGATIVE (NEGATIVE); BLOOD, URINE BLOOD 1+ (NEGATIVE); COLOR, URINE YELLOW (YELLOW); GLUCOSE, URINE (UA) AUTO NEGATIVE (NEGATIVE); KETONE, URINE AUTO NEGATIVE (NEGATIVE); LEUKOCYTE ESTERASE, URINE AUTO 3+ (NEGATIVE); MUCUS, URINE SMALL (NEGATIVE); NITRITE, URINE AUTO POSITIVE (NEGATIVE); PROTEIN, URINE AUTO 2+ mg/dL (NEGATIVE); RBC, URINE AUTO 16 /HPF (0-3); SPECIFIC GRAVITY URINE AUTO 1.014 (1.002-1.035); SQUAMOUS EPITHELIAL CELL UR AU 1 /HPF (0-6); WBC, URINE AUTO TNTC /HPF (0-3)
[2017-09-22] MEDS: ACETAMINOPHEN 325 MG TAB PO (19:26)
[2017-09-22 19:27] LABS: LACTIC ACID SEPSIS PROTOCOL 0.7 MMOL/L (0.4-2.0)
[2017-09-22 19:29] LABS: ALBUMIN 2.9 GM/DL (3.2-5.2); ALBUMIN/GLOBULIN RATIO 0.78 (1.00-1.93); ALKALINE PHOSPHATASE 89 U/L (45-117); ALT/SGPT 14 U/L (12-78); ANION GAP 7 MEQ/L (8-16); AST/SGOT 11 U/L (7-37); BILIRUBIN,DIRECT 0.2 MG/DL (0.0-0.2); BILIRUBIN,TOTAL 0.7 MG/DL (0.2-1.0); BLOOD UREA NITROGEN 21 MG/DL (7-18); CALCIUM LEVEL 8.2 MG/DL (8.8-10.2); CARBON DIOXIDE LEVEL 23 MEQ/L (21-32); CHLORIDE LEVEL 108 MEQ/L (98-107); CREATININE FOR GFR 1.62 MG/DL (0.55-1.30); GLOMERULAR FILTRATION RATE 32.4 (>32); GLUCOSE, FASTING 117 MG/DL (70-100); POTASSIUM SERUM 3.9 MEQ/L (3.5-5.1); SODIUM LEVEL 138 MEQ/L (136-145); TOTAL PROTEIN 6.6 GM/DL (6.4-8.2)
[2017-09-22] MEDS: CIPROFLOXACIN 500 MG TAB PO (19:58)
[2017-09-22] MEDS: PHENAZOPYRIDINE 100 MG TAB PO (19:58)
== END 2017-09-22 20:25 | disposition home or self-care (01) ==
LOC: M ED 18:23
DX: N39.0 Urinary tract infection, site not specified (principal); J44.9 Chronic obstructive pulmonary disease, unspecified; I25.10 Atherosclerotic heart disease of native coronary artery without angina pectoris; E11.9 Type 2 diabetes mellitus without complications; I10 Essential (primary) hypertension; E78.00 Pure hypercholesterolemia, unspecified; Z79.899 Other long term (current) drug therapy; Z79.84 Long term (current) use of oral hypoglycemic drugs; F17.210 Nicotine dependence, cigarettes, uncomplicated
CPT/HCPCS: 71046

== ENCOUNTER → 2017-12-16 | Outpatient (REF) | payer MEDICARE ==
[2017-12-16 19:04] LABS: APPEARANCE, URINE CLEAR (CLEAR); BACTERIA, URINE AUTO NEGATIVE (NEGATIVE); BILIRUBIN, URINE AUTO NEGATIVE (NEGATIVE); BLOOD, URINE BLOOD NEGATIVE (NEGATIVE); COLOR, URINE YELLOW (YELLOW); GLUCOSE, URINE (UA) AUTO NEGATIVE (NEGATIVE); KETONE, URINE AUTO NEGATIVE (NEGATIVE); LEUKOCYTE ESTERASE, URINE AUTO 1+ (NEGATIVE); NITRITE, URINE AUTO NEGATIVE (NEGATIVE); PROTEIN, URINE AUTO NEGATIVE (NEGATIVE); RBC, URINE AUTO 0 /HPF (0-3); SPECIFIC GRAVITY URINE AUTO 1.008 (1.002-1.035); SQUAMOUS EPITHELIAL CELL UR AU 0 /HPF (0-6); UROBILINOGEN, URINE AUTO 0.2 mg/dL (0.0-2.0); WBC, URINE AUTO 7 /HPF (0-3)
== END ==
LOC: M LAB REF 18:43
DX: M54.5 Low back pain (principal)
CPT/HCPCS: 81001

== ENCOUNTER → 2018-01-05 | Outpatient (CLI) | payer MEDICARE | LOC: M RAD 09:28 | DX: M54.5 Low back pain (principal); E11.65 Type 2 diabetes mellitus with hyperglycemia; R41.3 Other amnesia ==

== ENCOUNTER → 2018-01-05 | Outpatient (CLI) | payer MEDICARE ==
[2018-01-05 11:14] LABS: BASO # 0.1 10^3/uL (0.0-0.2); BASO % 0.7 % (0.0-1.0); EOS # 0.4 10^3/uL (0.0-0.50); EOS % 5.3 % (0.0-3.0); HEMATOCRIT 33.9 % (36.0-47.0); HEMOGLOBIN 10.7 g/dl (12.0-15.5); IMMATURE GRANULOCYTE % 0.2 % (0-3.0); LYMPH # 2.7 10^3/uL (1.5-4.5); LYMPH % 32.2 % (24.0-44.0); MEAN CORPUSCULAR HEMOGLOBIN 30.7 pg (27.0-33.0); MEAN CORPUSCULAR HGB CONC 31.6 g/dl (32.0-36.5); MEAN CORPUSCULAR VOLUME 97.4 fl (80.0-96.0); MONO # 0.8 10^3/uL (0.0-0.8); MONO % 10.1 % (0.0-5.0); NEUTROPHILS # 4.2 10^3/uL (1.8-7.7); NEUTROPHILS % 51.5 % (36.0-66.0); PLATELET COUNT, AUTOMATED 227 10^3/uL (150-450); RED BLOOD COUNT 3.48 10^6/uL (4.00-5.40); RED CELL DISTRIBUTION WIDTH 13.2 % (11.5-14.5); WHITE BLOOD COUNT 8.2 10^3/uL (4.0-10.0)
[2018-01-05 12:17] LABS: ALBUMIN 3.1 GM/DL (3.2-5.2); ALBUMIN/GLOBULIN RATIO 0.94 (1.00-1.93); ALKALINE PHOSPHATASE 107 U/L (45-117); ALT/SGPT 12 U/L (12-78); ANION GAP 7 MEQ/L (8-16); AST/SGOT 11 U/L (7-37); BILIRUBIN,TOTAL 0.6 MG/DL (0.2-1.0); BLOOD UREA NITROGEN 16 MG/DL (7-18); CALCIUM LEVEL 8.6 MG/DL (8.8-10.2); CARBON DIOXIDE LEVEL 28 MEQ/L (21-32); CHLORIDE LEVEL 107 MEQ/L (98-107); CHOLESTEROL LEVEL 147 MG/DL (<200); CHOLESTEROL RISK RATIO 4.083 (<5); CREATININE FOR GFR 1.36 MG/DL (0.55-1.30); ESTIMATED AVERAGE GLUCOSE 100 MG/DL (60-110); GLOMERULAR FILTRATION RATE 39.6 (>32); GLUCOSE, FASTING 74 MG/DL (70-100); HDL CHOLESTEROL 36 MG/DL (>40); HEMOGLOBIN A1c 5.1 %; LDL CHOLESTEROL 84 MG/DL (<100); NON-HDL-C 111 MG/DL; POTASSIUM SERUM 4.3 MEQ/L (3.5-5.1); SODIUM LEVEL 142 MEQ/L (136-145); TOTAL PROTEIN 6.4 GM/DL (6.4-8.2); TRIGLYCERIDES LEVEL 134 MG/DL (<150)
== END ==
LOC: M LAB 09:34
DX: M54.5 Low back pain (principal); E11.65 Type 2 diabetes mellitus with hyperglycemia; R41.3 Other amnesia
CPT/HCPCS: 70450

== ENCOUNTER 2018-05-17 08:38 | Emergency (ER) | payer MEDICAID, MEDICARE ==
[~2018-05-17] VITALS: Ht 167.6 cm; Wt 104.5 kg
[~2018-05-17 08:38] MED LIST changes: +AUGM875T28 PO; +CIPR-249 PO; +DEBR6.5S4 PO; -FOSI40TA PO; +FOSI40TA2 PO; +MECL-68 PO; +PRED20TA PO; +PYRI1TAB5 PO; +TYLE325T5 PO; +[UNRECOGNIZED DRUG - OTHER] PO
[2018-05-17] MEDS ORDERED: LISI10TA4 PO (08:59)
--- NOTE | 2018-05-17 09:38 | REP ---
LEFT ANKLE, FOUR VIEWS: HISTORY: Trauma. There is no acute fracture or dislocation. The joint space is normal in appearance. IMPRESSION: There is no acute fracture or dislocation. Electronically Signed by Demarcus Yusuf MD 05/17/2018 09:55 A
--- NOTE | 2018-05-17 09:46 | REP ---
RIGHT SHOULDER, THREE VIEWS: HISTORY: Trauma. There is no acute fracture or dislocation. There is mild narrowing of the acromioclavicular joint space. The glenohumeral joint space is normal in appearance. IMPRESSION: There is no acute fracture or dislocation. Electronically Signed by Demarcus Yusuf MD 05/17/2018 09:55 A
[2018-05-17] MEDS ORDERED: APAP500T10 PO (09:51)
[2018-05-17] MEDS ORDERED: ROLLMIS2 XX ×2 (12:34→12:37)
[2018-05-17 12:36] VITALS: BP 142/76
== END 2018-05-17 12:43 | disposition home or self-care (01) ==
LOC: EDBD 08:38 → M ED 08:38
DX: S40.011A Contusion of right shoulder, initial encounter (principal); S93.402A Sprain of unspecified ligament of left ankle, initial encounter; Y92.009 Unspecified place in unspecified non-institutional (private) residence as the place of occurrence of the external cause; W18.2XXA Fall in (into) shower or empty bathtub, initial encounter

== ENCOUNTER 2018-06-26 07:50 | Inpatient (IN) | payer MEDICARE ==
[~2018-06-26] VITALS: Ht 167.6 cm; Wt 86.8 kg
[~2018-06-26 07:50] MED LIST changes: +APAP500T10 PO; +LISI10TA4 PO; +ROLLMIS2 XX
[2018-06-26] MEDS ORDERED: LIDOCAINE 2% 5ML JELLY UROJET TOP ONE (08:15)
[2018-06-26] MEDS ORDERED: ONDANSETRON 4MG/2ML VIAL (J2405) IV ONE (08:30)
--- NOTE | 2018-06-26 08:35 | REP ---
CT brain without contrast: History: Altered mental status. Comparison head CT study January 05, 2018. CT findings: Preliminary digital lateral fence erector supervisor radiograph is unremarkable. Visualized paranasal sinuses are clear. Vascular calcification is again noted in the distal carotid and distal vertebral arteries. No bony calvarial defect or fracture is seen. On soft tissue windows settings, there is moderate diffuse cerebral atrophy. Periventricular white matter low density is again seen bilaterally in the frontal lobes consistent with fairly extensive small vessel atherosclerotic changes. No evidence of acute infarction is seen. No hemorrhage is noted. No mass or extra-axial fluid collection is seen. Impression: Diffuse moderate atrophy. Small vessel changes. Vascular calcification. No acute intracranial abnormality. Electronically Signed by Cresencio Akhtar MD 06/26/2018 12:42 P
[2018-06-26 08:41] LABS: BASO % 0.4 % (0.0-1.0); EOS # 0.3 10^3/uL (0.0-0.50); HEMATOCRIT 34.1 % (36.0-47.0); HEMOGLOBIN 10.9 g/dl (12.0-15.5); LYMPH # 1.6 10^3/uL (1.5-4.5); LYMPH % 19.6 % (24.0-44.0); MEAN CORPUSCULAR HEMOGLOBIN 30.2 pg (27.0-33.0); MEAN CORPUSCULAR VOLUME 94.5 fl (80.0-96.0); MONO # 0.8 10^3/uL (0.0-0.8); MONO % 10.1 % (0.0-5.0); NEUTROPHILS # 5.5 10^3/uL (1.8-7.7); NEUTROPHILS % 65.4 % (36.0-66.0); PLATELET COUNT, AUTOMATED 221 10^3/uL (150-450); RED BLOOD COUNT 3.61 10^6/uL (4.00-5.40); WHITE BLOOD COUNT 8.4 10^3/uL (4.0-10.0)
[2018-06-26] MEDS ORDERED: NS 1,000 ML IV ONE (09:00)
--- NOTE | 2018-06-26 09:06 | REP ---
PORTABLE CHEST: Single view of the chest is performed. COMPARISON: 09/22/2017 There is mild cardiomegaly. There is no acute infiltrate. There is mild bibasilar interstitial prominence, which is chronic and stable. There is tortuosity of the thoracic aorta. The mediastinal silhouette is unchanged. IMPRESSION: Mild cardiomegaly and stable chronic findings without acute infiltrate. Electronically Signed by Baldemar Gillette MD 06/26/2018 05:36 P
[2018-06-26 09:10] LABS: ACETAMINOPHEN LEVEL < 2.0 UG/ML (10.0-30.0); ALBUMIN 3.3 GM/DL (3.2-5.2); ALT/SGPT 15 U/L (12-78); BILIRUBIN,DIRECT 0.1 MG/DL (0.0-0.2); BILIRUBIN,TOTAL 0.4 MG/DL (0.2-1.0); BLOOD UREA NITROGEN 29 MG/DL (7-18); CALCIUM LEVEL 8.7 MG/DL (8.8-10.2); CARBON DIOXIDE LEVEL 26 MEQ/L (21-32); CHLORIDE LEVEL 107 MEQ/L (98-107); CPK CREATINE PHOSPHOKINASE 58 U/L (26-192); CREATININE FOR GFR 1.45 MG/DL (0.55-1.30); ETHYL ALCOHOL (ETHANOL) < 0.003 % (0.000-0.010); GLOMERULAR FILTRATION RATE 36.8 (>32); GLUCOSE, FASTING 104 MG/DL (70-100); MB/CK RELATIVE INDEX 3.97 (< OR =4); POTASSIUM SERUM 4.3 MEQ/L (3.5-5.1); SALICYLATE LEVEL 3.6 MG/DL (5.0-30.0); SODIUM LEVEL 139 MEQ/L (136-145); TOTAL PROTEIN 6.6 GM/DL (6.4-8.2); TROPONIN I < 0.02 NG/ML (< 0.10)
[2018-06-26 09:12] LABS: AMPHETAMINES LEVEL URINE NEGATIVE (NEGATIVE); BARBITURATES URINE NEGATIVE (NEGATIVE); BENZODIAZEPINES URINE NEGATIVE (NEGATIVE); CANNABINOIDS URINE NEGATIVE (NEGATIVE); COCAINE METABOLITE URINE NEGATIVE (NEGATIVE); METHADONE URINE NEGATIVE (NEGATIVE); OPIATES URINE NEGATIVE (NEGATIVE); PHENCYCLIDINE URINE NEGATIVE (NEGATIVE)
[2018-06-26] MEDS ORDERED: FOSI10TA2 PO (09:13)
[2018-06-26] MEDS ORDERED: ACET-683 PO (09:13)
[2018-06-26] MEDS ORDERED: FOSI40TA2 PO (09:15)
[2018-06-26 09:18] LABS: ABG BASE EXCESS -2.5 (-2.0-2.0); ABG HCO3 22.6 MEQ/L (22.0-26.0); ABG O2 SATURATION 96.6 % (95.0-99.0); ABG PARTIAL PRESSURE O2 87.7 mmHg (75.0-100.0); ABG STANDARD HCO3 22.4 MEQ/L (22.0-26.0); ABG TOTAL CO2 23.8 MEQ/L (23.0-31.0)
[2018-06-26] MEDS ORDERED: ISOVUE-370 76% 100ML VIAL (Q9967) As Ordered ONE (09:27)
[2018-06-26 10:24] LABS: FREE T4 1.07 NG/DL (0.76-1.46)
--- NOTE | 2018-06-26 10:33 | REP ---
CT ABDOMEN AND PELVIS WITH IV CONTRAST: TECHNIQUE: Axial contrast enhanced images from the lung bases to the pubic symphysis using 100 mL Isovue 370 intravenous contrast material with multiplanar reformations. COMPARISON: 11/19/2013 Visualized lung bases demonstrate mild fibroatelectatic change. A few cysts are seen in the dome of the liver on the right, the largest measures 2 cm in diameter. Spleen, adrenals and pancreas are unremarkable. There is no hydronephrosis bilaterally. There appear to be a view scattered tiny cysts in the kidneys bilaterally. Left kidney appears mildly atrophic. There is atherosclerotic calcification of the abdominal aorta. Aortobiiliac stent is again seen unchanged in position. However, the right common iliac artery diameter has increased from about 2.6 cm to about 3.5 cm. Inferiorly, focal metallic structures seen causing extensive adjacent artifact. Just inferior to this, within the lumen of the dilated distal common iliac artery, there is some ill-defined contrast suggesting endoleak. Old postsurgical scarring is seen in the anterior abdominal wall midline. No bowel wall thickening is seen. No pelvic mass is seen. Urinary bladder is mildly distended and grossly unremarkable. There is a small hiatal hernia. IMPRESSION: Small hiatal hernia. Status post cholecystectomy without biliary dilatation. No free air or free fluid. No adenopathy. Aortobiiliac stent noted. Since the prior study of 11/19/2013, the [place] right common iliac artery has increased in size and now measures approximately 3.5 cm in diameter. 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 Electronically Signed by Baldemar Gillette MD 06/26/2018 05:38 P
[2018-06-26 11:01] LABS: TOTAL 25(OH) VITAMIN D 14.7 NG/ML (30.0-100.0); TOTAL T3 135.7 NG/DL (60.0-181.0)
[2018-06-26 11:02] LABS: VITAMIN B12 LEVEL 285 PG/ML (247-911)
[2018-06-26 13:30] VITALS: BP 134/77
[2018-06-26] MEDS ORDERED: GLUCOSE 4 GM CHEW TABLET PO PRN (17:45)
[2018-06-26] MEDS ORDERED: GLUCAGON FOR INJ 1 MG VIAL (J1610) SC PRN (17:45)
[2018-06-26] MEDS ORDERED: DEXTROSE 50% 50 ML SYRINGE IV PRN (17:45)
--- NOTE | 2018-06-26 17:55 | HPEPDOC ---
General Date of Admission Jun 26, 2018 at 11:02 Chief Complaint The patient is a 82-year-old female who Presented to the ER after patient has be en experiencing vomiting this morning and a progressive decline in her functional status. History of Present Illness Patient is an 82-year-old female with a PMHx of HTN, DLP, DM2, COPD, JUNIOR on CPAP (not compliant), Active smoker and GERD who presented to the ER afte r she had a vomiting episode this morning.] Patient was brought in by her daughter, Evelin Cruz ([phone]). Patient is a poor historian and information was gathered her daughter who is also her he althcare proxy. Patients daughter has indicated that over the last 2 months. Patient has been having a progressive decline in her functional status, is having difficulty with her activities of daily living, as indicated, and the patient is unable to care for herself. She has noted that she is the primary caregiver for the patient, however, she is unable to do so any longer given the increase in requirement. Upon questioning the patient she denies any chest pain, shortness of breath, palpitations, abdominal pain, constipation, diarrhea or discomfort with urination. Patient does report an episode of vomiting earlier today. 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 Wilson Sewell in [place]; reported to be approximately 7 cm in size Abdominal aortic aneurysm status post endovascular stent placement including both iliac arteries x2 Cholecystectomy Family History - Noncontributory given advanced age Social History - Denies the use of alcohol or illicit drugs; patient is an active smoker, approximately 60 years at 2.5 PPD - Denies recent travel or sick contacts - Lives with daughter Review of Systems Other systems 10 point review systems negative otherwise stated in HPI Vital Signs - Vitals: BP 134/77, HR 73, RR 18, Sat 96%RA, Temp 97.1F - General: Lying in bed, No acute distress, Speaking in full sentences, AAOx1 (only to person) - HEENT: NC, AT, PERRLA - CVS: RRR, +S1S2, - Murmurs / rubs / gallops - Lungs: Fair air entry bilaterally, Clear to auscultation, No wheezing / rales / rhonchi - Abdomen: Soft, Non-distended, Non-tender - Extremities: No lower extremity edema, No calf tenderness - Neuro: 5/5 strength at upper and lower extremities bilaterally - Skin: No visible rashes Laboratory Data Labs 24H Laboratory Tests 2 06/26/18 08:23: Vitamin B12 Level 285, 25-Hydroxy Vitamin D Total 14.7L, Free Thyroxine 1.07, Total Triiodothyronine 135.7, Syphilis Serology NONREACTIVE 06/26/18 08:25: Immature Granulocyte % (Auto) 0.5, White Blood Count 8.4, Red Blood Count 3.61L, Hemoglobin 10.9L, Hematocrit 34.1L, Mean Corpuscular Volume 94.5, Mean Corpuscular Hemoglobin 30.2, Mean Corpuscular Hemoglobin Concent 32.0, Red Cell Distribution Width 13.8, Platelet Count 221, Neutrophils (%) (Auto) 65.4, Lymphocytes (%) (Auto) 19.6L, Monocytes (%) (Auto) 10.1H, Eosinophils (%) (Auto) 4.0H, Basophils (%) (Auto) 0.4, Neutrophils # (Auto) 5.5, Lymphocytes # (Auto) 1.6, Monocytes # (Auto) 0.8, Eosinophils # (Auto) 0.3, Basophils # (Auto) 0.0, Nucleated Red Blood Cells % (auto) 0.0, Anion Gap 6L, Glomerular Filtration Rate 36.8, Lactic Acid Level 1.5, Calcium Level 8.7L, Aspartate Amino Transf (AST/SGOT) 17, Alanine Aminotransferase (ALT/SGPT) 15, Alkaline Phosphatase 137H, Total Bilirubin 0.4, Direct Bilirubin 0.1, Ammonia < 10, Total Creatine Kinase 58, Creatine Kinase MB 2.0, Creatine Kinase MB Relative Index 3.97, Troponin I < 0.02, Total Protein 6.6, Albumin 3.3, Albumin/Globulin Ratio 1.00, Thyroid Stimulating Hormone (TSH) 7.930H, Salicylates Level 3.6L, Acetaminophen Level < 2.0L, Ethyl Alcohol Level < 0.003 06/26/18 08:36: Urine Color YELLOW, Urine Appearance CLEAR, Urine pH 5.0, Urine Specific [place] 1.014, Urine Protein 1+H, Urine Glucose (UA) NEGATIVE, Urine Ketones NEGATIVE, Urine Blood NEGATIVE, Urine Nitrite NEGATIVE, Urine Bilirubin NEGATIVE, Urine Urobilinogen 0.2, Urine Leukocyte Esterase NEGATIVE, Urine WBC (Auto) 1, Urine RBC (Auto) 1, Urine Hyaline Casts (Auto) 1, Urine Bacteria (Auto) NEGATIVE, Urine Squamous Epithelial Cells 1, Urine Mucus (Auto) SMALL, Urine Sperm (Auto) , Urine Amphetamines Screen NEGATIVE, Urine Benzodiazepines Screen NEGATIVE, Urine Opiates Screen NEGATIVE, Urine Methadone Screen NEGATIVE, Urine Barbiturates Screen NEGATIVE, Urine Phencyclidine Screen NEGATIVE, Urine Cocaine Metabolite Screen NEGATIVE, Urine Cannabinoids Screen NEGATIVE 06/26/18 08:58: Blood Gas Bicarbonate Standard 22.4, Arterial Blood pH 7.370, Arterial Blood Partial Pressure CO2 40.0, Arterial Blood Partial Pressure O2 87.7, Arterial Blood Total CO2 23.8, Arterial Blood HCO3 22.6, Arterial Blood Base Excess - 2.5L, Arterial Blood Oxygen Saturation 96.6 CBC/BMP Laboratory Tests 06/26/18 08:25 Red Blood Count 3.61 L, Mean Corpuscular Volume 94.5, Mean Corpuscular Hemoglobin 30.2, Mean Corpuscular Hemoglobin Concent 32.0, Red Cell Distribution Width 13.8, Neutrophils (%) (Auto) 65.4, Lymphocytes (%) (Auto) 19.6 L, Monocytes (%) (Auto) 10.1 H, Eosinophils (%) (Auto) 4.0 H, Basophils (%) (Auto) 0.4, Neutrophils # (Auto) 5.5, Lymphocytes # (Auto) 1.6, Monocytes # (Auto) 0.8, Eosinophils # (Auto) 0.3, Basophils # (Auto) 0.0 Microbiology Microbiology 06/26/18 Blood Culture, Received Pending 06/26/18 Blood Culture, Received Pending 06/26/18 Respiratory Virus Panel (PCR) ([place]) - Final, Complete Plan / VTE VTE Prophylaxis Ordered?: Yes Plan Plan Acute encephalopathy - possibly 2/2 progressive dementia, less likely 2/2 infectious etiology, less likely 2/2 CVA - Presented to the ER after experiencing progressive confusion - As per the daughter was provided the history, patient is having greater diffic ulty with ADLs - Physical without any focal neurologic deficits - Remains afebrile and hemodynamically stable - No leukocytosis or lactic acidosis - UA without signs of infection - TSH level noted, RPR negative, B12 level wnl - Vitamin D level low - CT head 34: Diffuse moderate atrophy. Small vessel changes. Vascular calcification. No acute intracranial abnormality. - CXR 3/4: Mild cardiomegaly and stable chronic findings without acute infiltrate. - Will start PT / OT - Will likely need placement Hx of Endovascular stent at aortobiilliac arteries - Clinically patient has no abdominal pain - Physical reveals profusion of bilateral lower extremities - Hemoglobin appears to be at baseline - CT ab/pel 06/26: Small hiatal hernia. Status post cholecystectomy without biliary dilatation. No free air or free fluid. No adenopathy. Aortobiiliac stent noted. Since the prior study of 11/19/2013, the [place] right common iliac artery has increased in size and now measures approximately 3.5 cm in diameter. 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 - Discuss case with vascular surgery; will be on consultation; advised that this is likely a chronic problem; will continue to follow Low vitamin D - Will supplement HTN - BP well controlled - c/w Fosinopril with holding parameters DLP - Currently not on any medications DM2 - Will start ISS COPD - Patient uses inhaled therapy only as needed - Will continue with the same while inpatient JUNIOR on CPAP - Not compliant with device Active smoker - Will start nicotine patch CKD3 - Cr appears to be at baseline DVT prophylaxis - Will start SCDs TYRONE BALDERAS MD Jun 26, 2018 17:55
[2018-06-26] MEDS ORDERED: IPRATROPIUM 0.5MG/ALBUTEROL 2.5MG INH SOL UD 3ML (DUONEB)(J7620) NEB PRN (18:00)
[2018-06-26] MEDS: NICOTINE 21MG/24HR 1 EA TRANSDERMAL TD SCH (18:43)
--- NOTE | 2018-06-26 19:42 | ECGEPIP ---
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
[2018-06-26] MEDS: HumaLOG INSULIN (NovoLOG) PER UNIT SC SCH (21:45)
[2018-06-26] MEDS: ACETAMINOPHEN 500 MG TAB PO PRN (21:45)
[2018-06-26 22:00] VITALS: BP 139/70
--- NOTE | 2018-06-26 22:58 | CR.PDOC ---
Subjective General Date/Time Seen The patient was seen on 06/26/18 at 22:53. Subject Chief Complaint/History The patient is a 82-year-old female admitted with a reason for visit of Altered Mental State. Current Medications Current Medications Current Medications Acetaminophen (Tylenol Tab) 500 mg Q6HP PRN PO PAIN Last administered on 06/26/18at 21:45; Start 06/26/18 at 17:45 Albuterol/ Ipratropium (Duoneb (Ipr 0.5mg/Alb 2.5mg)) 3 ml Q2HP PRN NEB SOB/WHEEZING; Start 06/26/18 at 18:00 Dextrose (Dextrose 50%) 25 ml ASDIRECTED PRN IV SEE LABEL COMMENTS; Start at 17:45 Fosinopril Sodium (Monopril) 40 mg DAILY PO ; Start 06/27/18 at 09:00 Glucagon (Glucagon) 1 mg ASDIRECTED PRN SC SEE LABEL COMMENTS; Start 06/26/18 at 17:45 Glucose (Glucose) 16 GM ASDIRECTED PRN PO SEE LABEL COMMENTS; Start 06/26/18 at 17:45 Home Med (Med Rec Complete!) ASDIRECTED XX ; Start 06/26/18 at 09:30; Stop 06/26/18 at 09:30; Status DC Insulin Human Lispro (HumaLOG INSULIN) SEE PROTOCOL TABLE AC SC ; Start 06/27/18 at 07:30 Insulin Human Lispro (HumaLOG INSULIN) SEE PROTOCOL TABLE QHS SC ; Start 06/26/18 at 21:00 Nicotine (Nicoderm Cq 21mg) 1 patch DAILY TD Last administered on 06/26/18at 18:43; Start 06/26/18 at 09:00 Vitamin D (Vitamin D) 1,000 units DAILY PO ; Start 06/27/18 at 09:00 Allergies Coded Allergies: Cephalexin (Verified Adverse Reaction, Intermediate, felt faint, 06/26/18) Home Medications Home Medications Scheduled Fosinopril Sodium (Fosinopril Sodium) 40 Mg Tab, 40 MG PO DAILY, (Reported) Metformin Hydrochloride (Metformin HCl) 500 Mg Tab, 500 MG PO TID, (Reported) Scheduled PRN Acetaminophen (Acetaminophen Extra Stren) 500 Mg Tab, 500 MG PO Q6H PRN for PAIN, (Reported) VITAL SIGNS VITAL SIGNS Vital Signs Date Time Temp Pulse Resp B/P (MAP) Pulse Ox O2 Delivery O2 Flow Rate FiO2 06/26/18 13:30 98.3 73 24 134/77 (96) 96 06/26/18 13:06 97.1 70 18 133/88 (103) 98 Room Air 06/26/18 12:51 69 06/26/18 12:36 149/69 (95) 06/26/18 12:35 68 18 98 Room Air 06/26/18 12:20 67 100 06/26/18 12:05 65 98 06/26/18 11:50 65 98 06/26/18 11:35 64 97 06/26/18 11:20 144/67 (92) 06/26/18 11:18 67 18 97 Room Air 06/26/18 11:03 78 06/26/18 11:01 120/60 (80) 06/26/18 10:48 68 96 06/26/18 10:33 68 96 06/26/18 10:21 159/72 (101) 06/26/18 10:18 67 96 06/26/18 10:03 69 96 06/26/18 09:48 113/65 (81) 06/26/18 09:35 66 18 97 Room Air 06/26/18 09:20 62 120/54 (76) 96 06/26/18 09:05 61 114/60 (78) 97 06/26/18 08:53 06/26/18 08:50 61 18 96 Room Air 06/26/18 08:46 97/75 (82) 06/26/18 08:35 63 98 06/26/18 08:30 117/74 (88) 06/26/18 08:20 67 126/66 (86) 97 06/26/18 08:11 167/67 (100) 06/26/18 08:09 167/67 (100) 06/26/18 08:04 147/76 (99) 06/26/18 07:50 96.5 87 16 145/84 (104) 99 Room Air Laboratory Tests 06/26/18 08:23: Vitamin B12 Level 285, 25-Hydroxy Vitamin D Total 14.7L, Free Thyroxine 1.07, Total Triiodothyronine 135.7, Syphilis Serology NONREACTIVE 06/26/18 08:25: White Blood Count 8.4, Red Blood Count 3.61L, Hemoglobin 10.9L, Hematocrit 34.1L, Mean Corpuscular Volume 94.5, Mean Corpuscular Hemoglobin 30.2, Mean Corpuscular Hemoglobin Concent 32.0, Red Cell Distribution Width 13.8, Platelet Count 221, Neutrophils (%) (Auto) 65.4, Lymphocytes (%) (Auto) 19.6L, Monocytes (%) (Auto) 10.1H, Eosinophils (%) (Auto) 4.0H, Basophils (%) (Auto) 0.4, Neutrophils # (Auto) 5.5, Lymphocytes # (Auto) 1.6, Monocytes # (Auto) 0.8, Eosinophils # (Auto) 0.3, Basophils # (Auto) 0.0, Immature Granulocyte % (Auto) 0.5, Nucleated Red Blood Cells % (auto) 0.0, Sodium Level 139, Potassium Level 4.3, Chloride Level 107, Carbon Dioxide Level 26, Anion Gap 6L, Blood Urea Nitrogen 29H, Creatinine 1.45H, Glomerular Filtration Rate 36.8, Fasting Glucose 104H, Lactic Acid Level 1.5, Calcium Level 8.7L, Aspartate Amino Transf (AST/SGOT) 17, Alanine Aminotransferase (ALT/SGPT) 15, Alkaline Phosphatase 137H , Total Bilirubin 0.4, Direct Bilirubin 0.1, Ammonia < 10, Total Creatine Kinase 58, Creatine Kinase MB 2.0, Creatine Kinase MB Relative Index 3.97, Troponin I < 0.02, Total Protein 6.6, Albumin 3.3, Albumin/Globulin Ratio 1.00, Thyroid Stimulating Hormone (TSH) 7.930H, Salicylates Level 3.6L, Acetaminophen Level < 2.0L, Ethyl Alcohol Level < 0.003 06/26/18 08:36: Urine Color YELLOW, Urine Appearance CLEAR, Urine pH 5.0, Urine Specific [place] 1.014, Urine Protein 1+H, Urine Glucose (UA) NEGATIVE, Urine Ketones NEGATIVE, Urine Blood NEGATIVE, Urine Nitrite NEGATIVE, Urine Bilirubin NEGATIVE, Urine Urobilinogen 0.2, Urine Leukocyte Esterase NEGATIVE, Urine WBC (Auto) 1, Urine RBC (Auto) 1, Urine Hyaline Casts (Auto) 1, Urine Bacteria (Auto) NEGATIVE, Urine Squamous Epithelial Cells 1, Urine Mucus (Auto) SMALL, Urine Sperm (Auto) , Urine Amphetamines Screen NEGATIVE, Urine Benzodiazepines Screen NEGATIVE, Urine Opiates Screen NEGATIVE, Urine Methadone Screen NEGATIVE, Urine Barbiturates Screen NEGATIVE, Urine Phencyclidine Screen NEGATIVE, Urine Cocaine Metabolite Screen NEGATIVE, Urine Cannabinoids Screen NEGATIVE 06/26/18 08:58: Blood Gas Bicarbonate Standard 22.4, Arterial Blood pH 7.370, Arterial Blood Partial Pressure CO2 40.0, Arterial Blood Partial Pressure O2 87.7, Arterial Blood Total CO2 23.8, Arterial Blood HCO3 22.6, Arterial Blood Base Excess - 2.5L, Arterial Blood Oxygen Saturation 96.6 06/26/18 21:26: Bedside Glucose (Misc Panel) 111H Microbiology 06/26/18 Respiratory Virus Panel (PCR) ([place]) - Final, Complete Current Medications Medications (Trade) Dose Ordered Sig/Curt Route PRN Reason Start Time Stop Time Status Last Admin Dose Admin Acetaminophen (Tylenol Tab) 500 mg Q6HP PRN PO PAIN 06/26/18 17:45 06/26/18 21:45 Nicotine (Nicoderm Cq 21mg) 1 patch DAILY TD 06/26/18 09:00 06/26/18 18:43 Laboratory Tests 06/26/18 08:25 Red Blood Count 3.61 L, Mean Corpuscular Volume 94.5, Mean Corpuscular Hemoglobin 30.2, Mean Corpuscular Hemoglobin Concent 32.0, Red Cell Distribution Width 13.8, Neutrophils (%) (Auto) 65.4, Lymphocytes (%) (Auto) 19.6 L, Monocytes (%) (Auto) 10.1 H, Eosinophils (%) (Auto) 4.0 H, Basophils (%) (Auto) 0.4, Neutrophils # (Auto) 5.5, Lymphocytes # (Auto) 1.6, Monocytes # (Auto) 0.8, Eosinophils # (Auto) 0.3, Basophils # (Auto) 0.0 Laboratory Tests Test 06/26/18 21:26 Range/Units Bedside Glucose (Misc Panel) 111 83-110 MG/DL Microbiology 06/26/18 Blood Culture, Received Pending 06/26/18 Blood Culture, Received Pending 06/26/18 Respiratory Virus Panel (PCR) ([place]) - Final, Complete Objective Date of Service The patient was seen on 06/26/18. NOTE NAME: VIPUL AMOS DATE OF : 1935 AGE: 82 SEX: F REPORT #: [id number] ROOM: [facility] TECHNOLOGIST: RAMILA DOCTOR: Jory Rueda MD Ordered for Date&Time: 06/26/18 0913 cc: [~ rep ct ivnm] Service Date&Time: EXAMINATION REQUESTED: CT ABD/PEL W/IV CONTRAST ONLY REASON FOR PATIENT VISIT: ALTERED MENTAL STATE REASON FOR EXAM/COMMENT: nasuea,pain CT ABDOMEN AND PELVIS WITH IV CONTRAST: TECHNIQUE: Axial contrast enhanced images from the lung bases to the pubic symphysis using 100 mL Isovue 370 intravenous contrast material with multiplanar reformations. COMPARISON: 11/19/2013 Visualized lung bases demonstrate mild fibroatelectatic change. A few cysts are seen in the dome of the liver on the right, the largest measures 2 cm in diameter. Spleen, adrenals and pancreas are unremarkable. There is no hydronephrosis bilaterally. There appear to be a view scattered tiny cysts in th e kidneys bilaterally. Left kidney appears mildly atrophic. There is atherosclerotic calcification of the abdominal aorta. Aortobiiliac stent is again seen unchanged in position. However, the right common iliac artery diameter has increased from about 2.6 cm to about 3.5 cm. Inferiorly, focal metallic structures seen causing extensive adjacent artifact. Just inferior to this, within the lumen of the dilated distal common iliac artery, there is some ill-defined contrast suggesting endoleak. Old postsurgical scarring is seen in the anterior abdominal wall midline. No bowel wall thickening is seen. No pelvic mass is seen. Urinary bladder is mildly distended and grossly unremarkable. There is a small hiatal hernia. IMPRESSION: Small hiatal hernia. Status post cholecystectomy without biliary dilatation. No free air or free fluid. No adenopathy. Aortobiiliac stent noted. Since the prior study of 11/19/2013, the [place] right common iliac artery has increased in size and now measures approximately 3.5 cm in diameter. 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 Electronically Signed by Baldemar Gillette MD 06/26/2018 05:38 P Myles Marquez MD Jun 26, 2018 22:58
[2018-06-27] MEDS: diphenhydrAMINE CREAM 30GM TOP PRN ×2 (00:26→21:40)
[2018-06-27 06:00] VITALS: BP 134/65
[2018-06-27 06:22] LABS: BASO % 0.6 % (0.0-1.0); EOS # 0.4 10^3/uL (0.0-0.50); EOS % 5.7 % (0.0-3.0); HEMATOCRIT 33.1 % (36.0-47.0); HEMOGLOBIN 10.7 g/dl (12.0-15.5); LYMPH # 2.1 10^3/uL (1.5-4.5); LYMPH % 30.8 % (24.0-44.0); MEAN CORPUSCULAR HEMOGLOBIN 30.3 pg (27.0-33.0); MEAN CORPUSCULAR HGB CONC 32.3 g/dl (32.0-36.5); MEAN CORPUSCULAR VOLUME 93.8 fl (80.0-96.0); MONO # 0.7 10^3/uL (0.0-0.8); MONO % 10.1 % (0.0-5.0); NEUTROPHILS # 3.6 10^3/uL (1.8-7.7); NEUTROPHILS % 52.5 % (36.0-66.0); PLATELET COUNT, AUTOMATED 210 10^3/uL (150-450); RED BLOOD COUNT 3.53 10^6/uL (4.00-5.40); WHITE BLOOD COUNT 6.8 10^3/uL (4.0-10.0)
[2018-06-27] MEDS: HumaLOG INSULIN (NovoLOG) PER UNIT SC SCH ×4 (07:30→21:21)
[2018-06-27 08:16] LABS: CALCIUM LEVEL 7.9 MG/DL (8.8-10.2); CREATININE FOR GFR 1.38 MG/DL (0.55-1.30); MAGNESIUM LEVEL 1.8 MG/DL (1.8-2.4); POTASSIUM SERUM 4.3 MEQ/L (3.5-5.1)
[2018-06-27] MEDS: FOSINOPRIL 20 MG TAB PO SCH (09:49)
[2018-06-27] MEDS: NICOTINE 21MG/24HR 1 EA TRANSDERMAL TD SCH (09:49)
[2018-06-27] MEDS: VITAMIN D 1,000 INTERNATIONAL UNITS TABLET PO SCH (09:49)
--- NOTE | 2018-06-27 12:31 | IPNPDOC ---
Text Note Date of Service The patient was seen on 06/27/18. NOTE Subjective: Patient is an 82-year-old female with a PMHx of HTN, DLP, DM2, COPD, JUNIOR on CPAP (not compliant), Active smoker and GERD who presented to the ER after she had a vomiting episode this morning. Patient was brought in by her daughter, Evelin Cruz ([phone]). Patients daughter has indicated that over the last 2 months she has been having a progressive decline in her functional status. Patient was admitted to the hospital service because of her recent episode of vomiting and for aggressive functional decline. Patient was seen and examined at the bedside. Clinically, patient has no new concerns. Denies any pain or problems overnight. Objective: Vitals (See below) General: Lying in bed, no acute distress, comfortable, AAOx1 (person only) HEENT: NC, AT CVS: RRR, +S1S2 Lungs: Fair air entry b/l, auscultations without any wheezing, rhonchi or rales Abdomen: Soft, ND, NT Extremities: - Edema, - Calf tenderness Assessment and plan: Acute encephalopathy - possibly 2/2 progressive dementia, less likely 2/2 infectious etiology, less likely 2/2 CVA - Presented to the ER after experiencing progressive functional decline - As per the daughter was provided the history, patient is having greater difficulty with ADLs - Physical is again without any focal neurologic deficits - Remains afebrile and hemodynamically stable - No leukocytosis or lactic acidosis - UA without signs of infection - TSH level noted, RPR negative, B12 level wnl - CT head 3/4: Diffuse moderate atrophy. Small vessel changes. Vascular calcification. No acute intracranial abnormality. - CXR 3/4: Mild cardiomegaly and stable chronic findings without acute infiltrate. - c/w PT / OT - PFS on board for likely placement Hx of Endovascular stent at aortobiilliac arteries - Clinically patient has no abdominal pain - Physical reveals profusion of bilateral lower extremities - Hemoglobin appears to be at baseline - CT ab/pel 3/4: Small hiatal hernia. Status post cholecystectomy without biliary dilatation. No free air or free fluid. No adenopathy. Aortobiiliac stent noted. Since the prior study of 11/19/2013, the [place] right common iliac artery has increased in size and now measures approximately 3.5 cm in diameter. 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 - Discussed case with vascular surgery; on consultation; advised that this is likely a chronic problem; will continue to follow Low vitamin D - Vitamin D level noted - c/w supplement HTN - BP well controlled - c/w Fosinopril with holding parameters DLP - Currently not on any medications DM2 - c/w ISS COPD - No evidence of exacerbation - c/w inhaled therapy as ordered JUNIOR on CPAP - Not compliant with device Active smoker - c/w nicotine patch CKD3 - Cr appears to be at baseline DVT prophylaxis - c/w SCDs VS,Fishbone, I+O VS, Fishbone, I+O Laboratory Tests 06/27/18 06:13 Red Blood Count 3.53 L, Mean Corpuscular Volume 93.8, Mean Corpuscular Hemoglobin 30.3, Mean Corpuscular Hemoglobin Concent 32.3, Red Cell Distribution Width 14.1, Neutrophils (%) (Auto) 52.5, Lymphocytes (%) (Auto) 30.8, Monocytes (%) (Auto) 10.1 H, Eosinophils (%) (Auto) 5.7 H, Basophils (%) (Auto) 0.6, Neutrophils # (Auto) 3.6, Lymphocytes # (Auto) 2.1, Monocytes # (Auto) 0.7, Eosinophils # (Auto) 0.4, Basophils # (Auto) 0.0, Calcium Level 7.9 L Vital Signs Date Time Temp Pulse Resp B/P (MAP) Pulse Ox O2 Delivery O2 Flow Rate FiO2 06/27/18 09:49 150/80 06/27/18 06:00 98.7 64 20 98 06/26/18 13:06 Room Air I&O- Last 24 Hours up to 6 AM 06/27/18 06:00 Intake Total 1660 ml Output Total 800 ml Balance 860 ml TYRONE BALDERAS MD Jun 27, 2018 12:31
[2018-06-27 22:00] VITALS: BP 127/76
[2018-06-28 06:00] VITALS: BP 126/73
[2018-06-28] MEDS: ONDANSETRON 4 MG ORAL DISINTEGRATING TAB (Q0162 PER 1MG) SL PRN ×2 (06:28→12:36)
[2018-06-28 06:30] LABS: BASO % 0.2 % (0.0-1.0); EOS # 0.4 10^3/uL (0.0-0.50); EOS % 3.2 % (0.0-3.0); HEMATOCRIT 35.3 % (36.0-47.0); HEMOGLOBIN 11.2 g/dl (12.0-15.5); LYMPH % 17.1 % (24.0-44.0); MEAN CORPUSCULAR HEMOGLOBIN 29.7 pg (27.0-33.0); MEAN CORPUSCULAR HGB CONC 31.7 g/dl (32.0-36.5); MEAN CORPUSCULAR VOLUME 93.6 fl (80.0-96.0); MONO % 8.6 % (0.0-5.0); NEUTROPHILS % 70.5 % (36.0-66.0); PLATELET COUNT, AUTOMATED 225 10^3/uL (150-450); RED BLOOD COUNT 3.77 10^6/uL (4.00-5.40); WHITE BLOOD COUNT 11.4 10^3/uL (4.0-10.0)
[2018-06-28 06:52] LABS: CALCIUM LEVEL 8.9 MG/DL (8.8-10.2); CREATININE FOR GFR 1.6 MG/DL (0.55-1.30); GLOMERULAR FILTRATION RATE 32.9 (>32); MAGNESIUM LEVEL 2.2 MG/DL (1.8-2.4); POTASSIUM SERUM 4.5 MEQ/L (3.5-5.1)
[2018-06-28] MEDS: HumaLOG INSULIN (NovoLOG) PER UNIT SC SCH ×4 (07:30→20:41)
[2018-06-28] MEDS: NICOTINE 21MG/24HR 1 EA TRANSDERMAL TD SCH (09:00)
[2018-06-28] MEDS: FOSINOPRIL 20 MG TAB PO SCH (12:36)
[2018-06-28] MEDS: VITAMIN D 1,000 INTERNATIONAL UNITS TABLET PO SCH (12:36)
[2018-06-28] MEDS ORDERED: SODIUM CHLORIDE 0.9% 1000ML IV ONE (12:45)
[2018-06-28 14:00] VITALS: BP 138/75
[2018-06-28] MEDS: NYSTATIN 100,000 UNITS/GM TOPICAL PWD 15 GM TOP SCH (20:42)
[2018-06-28 22:00] VITALS: BP 129/66
--- NOTE | 2018-06-29 02:28 | IPNPDOC ---
Text Note Date of Service The patient was seen on 06/28/18. NOTE Subjective: This am patient is feeling unwell. She had refused her breakfast . She also had several loose bowel movements and nausea and abdominal discomfort. She was also complaining of malaise. Objective: Vitals (See below) General: Lying in bed, no acute distress, comfortable, AAOx1 (person only) HEENT: NC, AT CVS: RRR, +S1S2, no rub , murmur garcia Lungs: Fair air entry b/l, auscultations without any wheezing, rhonchi or rales Abdomen: Soft, ND, NT Extremities: - Edema, - Calf tenderness Labs and Radiology ; reviewed Assessment and plan: Patient is an 82-year-old female with a PMHx of HTN, DLP, DM2, COPD, JUNIOR on CPAP (not compliant), Active smoker and GERD who presented to the ER after she had a vomiting episode this morning. Patient was brought in by her daughter, Evelin Cruz ([phone]). Patients daughter has indicated that over the last 2 months she has been having a progressive decline in her functional status. Patient was admitted to the hospital service because of her recent episode of vomiting and for aggressive functional decline. New Onset Diarrhea in hospital. Noro virus diarrhea will continue with oral hydration could not Acute encephalopathy - possibly 2/2 progressive dementia, less likely 2/2 infectious etiology, less likely 2/2 CVA - Presented to the ER after experiencing progressive functional decline - As per the daughter was provided the history, patient is having greater difficulty with ADLs - Physical is again without any focal neurologic deficits - Remains afebrile and hemodynamically stable - No leukocytosis or lactic acidosis - UA without signs of infection - TSH level noted, RPR negative, B12 level wnl - CT head 3/4: Diffuse moderate atrophy. Small vessel changes. Vascular calcification. No acute intracranial abnormality. - CXR 3/4: Mild cardiomegaly and stable chronic findings without acute infiltrate. - c/w PT / OT - PFS on board for likely placement Hx of Endovascular stent at aortobiilliac arteries - Clinically patient has no abdominal pain - Physical reveals profusion of bilateral lower extremities - Hemoglobin appears to be at baseline - CT ab/pel 3/4: Small hiatal hernia. Status post cholecystectomy without biliary dilatation. No free air or free fluid. No adenopathy. Aortobiiliac stent noted. Since the prior study of 11/19/2013, the [place] right common iliac artery has increased in size and now measures approximately 3.5 cm in diameter. 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 - Discussed case with vascular surgery; on consultation; advised that this is likely a chronic problem; will continue to follow Low vitamin D - Vitamin D level noted - c/w supplement HTN - BP well controlled - c/w Fosinopril with holding parameters DLP - Currently not on any medications DM2 - c/w ISS COPD - No evidence of exacerbation - c/w inhaled therapy as ordered JUNIOR on CPAP - Not compliant with device Active smoker - c/w nicotine patch CKD3 - Cr appears to be at baseline DVT prophylaxis - c/w SCDs VS,Fishbone, I+O VS, Fishbone, I+O Laboratory Tests 06/28/18 06:00 Red Blood Count 3.77 L, Mean Corpuscular Volume 93.6, Mean Corpuscular Hemoglob in 29.7, Mean Corpuscular Hemoglobin Concent 31.7 L, Red Cell Distribution Width 14.1, Neutrophils (%) (Auto) 70.5 H, Lymphocytes (%) (Auto) 17.1 L, Monocytes (%) (Auto) 8.6 H, Eosinophils (%) (Auto) 3.2 H, Basophils (%) (Auto) 0.2, Neutrophils # (Auto) 8.0 H, Lymphocytes # (Auto) 2.0, Monocytes # (Auto) 1.0 H, Eosinophils # (Auto) 0.4, Basophils # (Auto) 0.0, Calcium Level 8.9 Vital Signs Date Time Temp Pulse Resp B/P (MAP) Pulse Ox O2 Delivery O2 Flow Rate FiO2 06/28/18 22:00 99.0 71 18 129/66 (87) 96 06/26/18 13:06 Room Air I&O- Last 24 Hours up to 6 AM 06/29/18 06:00 Intake Total 990 ml Balance 990 ml MARTINEZ BAUER MD Jun 29, 2018 02:28
[2018-06-29 06:00] VITALS: BP 111/55
[2018-06-29] MEDS: HumaLOG INSULIN (NovoLOG) PER UNIT SC SCH ×4 (07:30→20:42)
[2018-06-29] MEDS: VITAMIN D 1,000 INTERNATIONAL UNITS TABLET PO SCH (08:32)
[2018-06-29] MEDS: FOSINOPRIL 20 MG TAB PO SCH (08:33)
[2018-06-29] MEDS: NYSTATIN 100,000 UNITS/GM TOPICAL PWD 15 GM TOP SCH ×2 (08:33→20:53)
[2018-06-29 09:11] LABS: BASO % 0.2 % (0.0-1.0); EOS # 0.2 10^3/uL (0.0-0.50); EOS % 2.6 % (0.0-3.0); HEMATOCRIT 34.3 % (36.0-47.0); HEMOGLOBIN 10.8 g/dl (12.0-15.5); LYMPH # 1.1 10^3/uL (1.5-4.5); LYMPH % 18.3 % (24.0-44.0); MEAN CORPUSCULAR HEMOGLOBIN 30.1 pg (27.0-33.0); MEAN CORPUSCULAR HGB CONC 31.5 g/dl (32.0-36.5); MEAN CORPUSCULAR VOLUME 95.5 fl (80.0-96.0); MONO # 0.7 10^3/uL (0.0-0.8); MONO % 11.5 % (0.0-5.0); NEUTROPHILS # 4.2 10^3/uL (1.8-7.7); NEUTROPHILS % 66.9 % (36.0-66.0); PLATELET COUNT, AUTOMATED 208 10^3/uL (150-450); RED BLOOD COUNT 3.59 10^6/uL (4.00-5.40); WHITE BLOOD COUNT 6.2 10^3/uL (4.0-10.0)
[2018-06-29 09:32] LABS: CALCIUM LEVEL 8.1 MG/DL (8.8-10.2); CREATININE FOR GFR 1.78 MG/DL (0.55-1.30); POTASSIUM SERUM 4.4 MEQ/L (3.5-5.1)
--- NOTE | 2018-06-29 13:02 | IPNPDOC ---
Text Note Date of Service The patient was seen on 06/29/18. NOTE Subjective: Continues to have Diarrhea but it is slowing down. She is pleasantly confused and is not keeping any IV in. No vomiting or nausea. No abdominal pain. Will continue to encourage oral fluids. Tolerating oral food. Objective: Vitals (See below) General: Lying in bed, no acute distress, comfortable, AAOx1 (person only) HEENT: NC, AT CVS: RRR, +S1S2, no rub , murmur garcia Lungs: Fair air entry b/l, auscultations without any wheezing, rhonchi or rales Abdomen: Soft, ND, NT Extremities: - Edema, - Calf tenderness Labs and Radiology ; reviewed Assessment and plan: Patient is an 82-year-old female with a PMH of HTN, DLP, DM2, COPD, JUNIOR on CPAP (not compliant), Active smoker and GERD who presented to the ER after she had a vomiting episode this morning. Patient was brought in by her daughter, Evelin Cruz ([phone]). Patients daughter has indicated that over the last 2 months she has been having a progressive decline in her functional status. Patient was admitted to the hospital service because of her recent episode of vomiting and for aggressive functional decline. New Onset Diarrhea in hospital. Noro virus diarrhea will continue with oral hydration could not keep IV in her. She pulls them out. VENUS on CKD - due to diarrhea and dehydration - continue oral hydration , stop fosinopril Progressive dementia with intermittent episodes of delirium due to sun downing. -continues to be pleasantly confused. - Presented to the ER after experiencing progressive functional decline - As per the daughter was provided the history, patient is having greater difficulty with ADLs - c/w PT / OT - PFS on board for likely placement Hx of Endovascular stent at aortoiliac arteries -CT ab/pel 06/26: Small hiatal hernia. Status post cholecystectomy without biliary dilatation. No free air or free fluid. No adenopathy. Aortobiiliac stent noted. Since the prior study of 11/19/2013, the [place] right common iliac artery has increased in size and now measures approximately 3.5 cm in diameter. 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 - Discussed case with vascular surgery; on consultation; advised that this is likely a chronic problem; will continue to follow Low vitamin D - Vitamin D level noted - c/w supplement HTN - BP well controlled - stop fosinopril -will give amlodipine if needed. DLP - Currently not on any medications DM2 - c/w ISS COPD - No evidence of exacerbation - c/w inhaled therapy as ordered JUNIOR on CPAP - Not compliant with device Active smoker - refused to wear the nicotine patch. DVT prophylaxis - c/w SCDs VS,Fishbone, I+O VS, Fishbone, I+O Laboratory Tests 06/29/18 08:40 Red Blood Count 3.59 L, Mean Corpuscular Volume 95.5, Mean Corpuscular Hemoglobin 30.1, Mean Corpuscular Hemoglobin Concent 31.5 L, Red Cell Distribution Width 14.0, Neutrophils (%) (Auto) 66.9 H, Lymphocytes (%) (Auto) 18.3 L, Monocytes (%) (Auto) 11.5 H, Eosinophils (%) (Auto) 2.6, Basophils (%) (Auto) 0.2, Neutrophils # (Auto) 4.2, Lymphocytes # (Auto) 1.1 L, Monocytes # (Auto) 0.7, Eosinophils # (Auto) 0.2, Basophils # (Auto) 0.0, Calcium Level 8.1 L Vital Signs Date Time Temp Pulse Resp B/P (MAP) Pulse Ox O2 Delivery O2 Flow Rate FiO2 06/29/18 08:33 116/60 06/29/18 06:00 98.6 88 18 96 06/26/18 13:06 Room Air I&O- Last 24 Hours up to 6 AM 06/29/18 06:00 Intake Total 990 ml Output Total 0 ml Balance 990 ml MARTINEZ BAUER MD Jun 29, 2018 13:02
[2018-06-29 14:00] VITALS: BP 139/65
[2018-06-29 22:00] VITALS: BP 127/74
[2018-06-30 05:51] LABS: BASO % 0.1 % (0.0-1.0); EOS # 0.2 10^3/uL (0.0-0.50); EOS % 2.3 % (0.0-3.0); HEMATOCRIT 31.9 % (36.0-47.0); HEMOGLOBIN 10.5 g/dl (12.0-15.5); LYMPH # 1.4 10^3/uL (1.5-4.5); LYMPH % 15.3 % (24.0-44.0); MEAN CORPUSCULAR HEMOGLOBIN 30.1 pg (27.0-33.0); MEAN CORPUSCULAR HGB CONC 32.9 g/dl (32.0-36.5); MEAN CORPUSCULAR VOLUME 91.4 fl (80.0-96.0); MONO # 0.8 10^3/uL (0.0-0.8); MONO % 8.5 % (0.0-5.0); NEUTROPHILS # 6.9 10^3/uL (1.8-7.7); NEUTROPHILS % 73.4 % (36.0-66.0); PLATELET COUNT, AUTOMATED 191 10^3/uL (150-450); RED BLOOD COUNT 3.49 10^6/uL (4.00-5.40); WHITE BLOOD COUNT 9.4 10^3/uL (4.0-10.0)
[2018-06-30 06:00] VITALS: BP 136/79
[2018-06-30 06:16] LABS: CALCIUM LEVEL 7.6 MG/DL (8.8-10.2); CREATININE FOR GFR 1.71 MG/DL (0.55-1.30); GLOMERULAR FILTRATION RATE 30.4 (>32); MAGNESIUM LEVEL 1.9 MG/DL (1.8-2.4); POTASSIUM SERUM 4.6 MEQ/L (3.5-5.1)
[2018-06-30] MEDS: HumaLOG INSULIN (NovoLOG) PER UNIT SC SCH ×4 (07:30→20:54)
[2018-06-30] MEDS: amLODIPine 10 MG TAB PO SCH (09:00)
[2018-06-30] MEDS: VITAMIN D 1,000 INTERNATIONAL UNITS TABLET PO SCH (10:10)
[2018-06-30] MEDS: NYSTATIN 100,000 UNITS/GM TOPICAL PWD 15 GM TOP SCH ×2 (10:11→20:55)
[2018-06-30 14:00] VITALS: BP 130/68
[2018-06-30 22:00] VITALS: BP 167/91
[2018-06-30] MEDS: ACETAMINOPHEN 500 MG TAB PO PRN (23:10)
[2018-07-01 05:54] LABS: BASO % 0.5 % (0.0-1.0); EOS # 0.5 10^3/uL (0.0-0.50); EOS % 7.4 % (0.0-3.0); HEMATOCRIT 32.7 % (36.0-47.0); HEMOGLOBIN 10.6 g/dl (12.0-15.5); LYMPH # 2.3 10^3/uL (1.5-4.5); LYMPH % 34.9 % (24.0-44.0); MEAN CORPUSCULAR HEMOGLOBIN 30.2 pg (27.0-33.0); MEAN CORPUSCULAR HGB CONC 32.4 g/dl (32.0-36.5); MEAN CORPUSCULAR VOLUME 93.2 fl (80.0-96.0); MONO # 0.8 10^3/uL (0.0-0.8); MONO % 12.3 % (0.0-5.0); NEUTROPHILS % 44.6 % (36.0-66.0); PLATELET COUNT, AUTOMATED 198 10^3/uL (150-450); RED BLOOD COUNT 3.51 10^6/uL (4.00-5.40); WHITE BLOOD COUNT 6.7 10^3/uL (4.0-10.0)
[2018-07-01 06:00] VITALS: BP 115/58
[2018-07-01 06:20] LABS: CALCIUM LEVEL 7.8 MG/DL (8.8-10.2); CREATININE FOR GFR 1.59 MG/DL (0.55-1.30); GLOMERULAR FILTRATION RATE 33.1 (>32); POTASSIUM SERUM 4.2 MEQ/L (3.5-5.1)
[2018-07-01] MEDS: HumaLOG INSULIN (NovoLOG) PER UNIT SC SCH ×4 (07:30→21:00)
[2018-07-01] MEDS: VITAMIN D 1,000 INTERNATIONAL UNITS TABLET PO SCH (09:00)
[2018-07-01] MEDS: amLODIPine 10 MG TAB PO SCH (09:00)
[2018-07-01] MEDS: NYSTATIN 100,000 UNITS/GM TOPICAL PWD 15 GM TOP SCH ×2 (09:01→21:45)
--- NOTE | 2018-07-01 10:42 | IPN ---
DATE OF SERVICE: 07/01/2018 Zhane is seen while rounding for the hospitalists. She was admitted with decline in function. Was found to have norovirus infection. Does not keep IV fluids in due to dementia. Is rehydrating orally. PHYSICAL EXAMINATION: She is sleepy but arouses. Afebrile. Vital signs stable. Lungs clear. Heart: Regular rate and rhythm. Abdomen: Soft, nontender. Skin turgor normal. No peripheral edema. LABS: Creatinine is down to 1.59. Potassium is normal. CBC stable. IMPRESSION: 1. Norovirus infection. Continue oral hydration. 2. Acute kidney injury improved, off li inhibitor/fosinopril. Creatinine is improved today. 3. Dementia. She is going to require placement. 4. Endovascular stent at aortoiliac arteries. She has been seen by Dr. Marquez during this hospitalization. 5. Hypertension. Blood pressure is adequate with amlodipine. Monotherapy. 6. Diabetes on sliding scale insulin. 7. Hyperlipidemia currently not treated due to age. She probably could be SNF level of care Tuesday.
[2018-07-01 14:00] VITALS: BP 130/65
[2018-07-01] MEDS: ONDANSETRON 4 MG ORAL DISINTEGRATING TAB (Q0162 PER 1MG) SL PRN (16:51)
[2018-07-01 22:00] VITALS: BP 138/73
[2018-07-02 05:53] LABS: BASO % 0.4 % (0.0-1.0); EOS # 0.5 10^3/uL (0.0-0.50); EOS % 6.1 % (0.0-3.0); HEMATOCRIT 33.4 % (36.0-47.0); HEMOGLOBIN 10.8 g/dl (12.0-15.5); LYMPH # 2.9 10^3/uL (1.5-4.5); MEAN CORPUSCULAR HEMOGLOBIN 30.3 pg (27.0-33.0); MEAN CORPUSCULAR HGB CONC 32.3 g/dl (32.0-36.5); MEAN CORPUSCULAR VOLUME 93.6 fl (80.0-96.0); MONO # 0.8 10^3/uL (0.0-0.8); MONO % 9.7 % (0.0-5.0); NEUTROPHILS % 48.6 % (36.0-66.0); PLATELET COUNT, AUTOMATED 195 10^3/uL (150-450); RED BLOOD COUNT 3.57 10^6/uL (4.00-5.40); WHITE BLOOD COUNT 8.2 10^3/uL (4.0-10.0)
[2018-07-02 06:00] VITALS: BP 116/59
[2018-07-02 06:23] LABS: CREATININE FOR GFR 1.55 MG/DL (0.55-1.30); GLOMERULAR FILTRATION RATE 34.1 (>32); POTASSIUM SERUM 4.8 MEQ/L (3.5-5.1)
[2018-07-02] MEDS: HumaLOG INSULIN (NovoLOG) PER UNIT SC SCH ×4 (07:20→20:35)
[2018-07-02] MEDS: amLODIPine 10 MG TAB PO SCH (09:00)
[2018-07-02] MEDS: VITAMIN D 1,000 INTERNATIONAL UNITS TABLET PO SCH (09:30)
[2018-07-02] MEDS: NYSTATIN 100,000 UNITS/GM TOPICAL PWD 15 GM TOP SCH ×2 (09:31→20:41)
[2018-07-02 14:00] VITALS: BP 119/78
[2018-07-02 22:00] VITALS: BP 147/83
[2018-07-03 06:00] VITALS: BP 125/76
[2018-07-03 06:24] LABS: BASO % 0.5 % (0.0-1.0); EOS # 0.5 10^3/uL (0.0-0.50); HEMATOCRIT 33.7 % (36.0-47.0); HEMOGLOBIN 10.7 g/dl (12.0-15.5); LYMPH # 2.6 10^3/uL (1.5-4.5); LYMPH % 31.5 % (24.0-44.0); MEAN CORPUSCULAR HEMOGLOBIN 29.7 pg (27.0-33.0); MEAN CORPUSCULAR HGB CONC 31.8 g/dl (32.0-36.5); MEAN CORPUSCULAR VOLUME 93.6 fl (80.0-96.0); MONO # 0.8 10^3/uL (0.0-0.8); NEUTROPHILS # 4.3 10^3/uL (1.8-7.7); NEUTROPHILS % 51.9 % (36.0-66.0); PLATELET COUNT, AUTOMATED 207 10^3/uL (150-450); WHITE BLOOD COUNT 8.3 10^3/uL (4.0-10.0)
[2018-07-03 06:40] LABS: CALCIUM LEVEL 8.3 MG/DL (8.8-10.2); CREATININE FOR GFR 1.57 MG/DL (0.55-1.30); GLOMERULAR FILTRATION RATE 33.6 (>32); MAGNESIUM LEVEL 1.9 MG/DL (1.8-2.4); POTASSIUM SERUM 4.7 MEQ/L (3.5-5.1)
[2018-07-03] MEDS: HumaLOG INSULIN (NovoLOG) PER UNIT SC SCH (07:30)
[2018-07-03] MEDS: VITAMIN D 1,000 INTERNATIONAL UNITS TABLET PO SCH (08:24)
[2018-07-03] MEDS: amLODIPine 10 MG TAB PO SCH (08:27)
[2018-07-03] MEDS: NYSTATIN 100,000 UNITS/GM TOPICAL PWD 15 GM TOP SCH ×2 (08:27→20:38)
--- NOTE | 2018-07-03 10:40 | IPN ---
DATE: 07/03/2018 Zhane is seen [facility]. She is seen without benefit of her rounding note from yesterday which has not been transcribed yet by late morning. She has a norovirus infection. Her IV fluids were discontinued, but no change in her status that the staff is aware of it. She has a history of dementia, peripheral arterial disease and hypertension. PHYSICAL EXAMINATION: 119/74, afebrile. General appearance: Elderly, frail. She is dozing in her chair. Lungs clear. Heart regular rhythm. Abdomen soft, nontender. No peripheral edema. LABS: CBC unremarkable. Electrolytes unremarkable. IMPRESSION: 1. Norovirus infection, which seems to have improved. At this point we are going to put her on an intermediate facility level of care. She is going to need some short term rehab per care rounds today. 2. Acute kidney injury. This has resolved. She is off her WALI inhibitor which was fosinopril. Blood pressure is adequate without this. 3. Endovascular stent of aortoiliac arteries. Dr. Marquez has seen her. These stents are patent. 4. Hypertension. Blood pressure is well controlled on amlodipine alone. Her fosinopril is on hold due to the acute kidney injury. 5. Diabetes. She is on a sliding scale insulin and she has required only a few units since her admission. At this point we are going to stop the fingersticks and coverage as her diabetic control is adequate without supplemental insulin and will spare her the fingersticks as well. Dr. Annalise Garcia will be assuming her care in the morning. She is now on SNF level of care.
[2018-07-03] MEDS: ACETAMINOPHEN 500 MG TAB PO PRN (15:28)
[2018-07-03 22:00] VITALS: BP 147/75
[2018-07-03] MEDS: diphenhydrAMINE CREAM 30GM TOP PRN (22:34)
--- NOTE | 2018-07-04 01:31 | IPNPDOC ---
Subjective Date Seen The patient was seen on 06/30/18. Subjective Chief Complaint/HPI Alerted mental status now with diarrhea Events since last encounter Continues to have diarrhea but getting better. Denies any abdominal pain any nausea or vomiting. Her appetite is better. No fever or chills, no chest pain or sob or cough. Assessment /Plan Assessment Subjective: Continues to have Diarrhea but it is slowing down. She is pleasantly confused and is not keeping any IV in. No vomiting or nausea. No abdominal pain. Will continue to encourage oral fluids. Tolerating oral food. Objective: Vitals (See below) General: Lying in bed, no acute distress, comfortable, AAOx1 (person only) HEENT: NC, AT CVS: RRR, +S1S2, no rub , murmur garcia Lungs: Fair air entry b/l, auscultations without any wheezing, rhonchi or rales Abdomen: Soft, ND, NT Extremities: - Edema, - Calf tenderness Labs and Radiology ; reviewed Assessment and plan: Patient is an 82-year-old female with a PMH of HTN, DLP, DM2, COPD, JUNIOR on CPAP (not compliant), Active smoker and GERD who presented to the ER after she had a vomiting episode this morning. Patient was brought in by her daughter, Evelin Cruz ([phone]). Patients daughter has indicated that over the last 2 months she has been having a progressive decline in her functional status. Patient was admitted to the hospital service because of her recent episode of vomiting and for aggressive functional decline. New Onset Diarrhea in hospital. Noro virus diarrhea will continue with oral hydration could not keep IV in her. She pulls them out. VENUS on CKD - due to diarrhea and dehydration - continue oral hydration , stop fosinopril Progressive dementia with intermittent episodes of delirium due to sun downing. -continues to be pleasantly confused. - Presented to the ER after experiencing progressive functional decline - As per the daughter was provided the history, patient is having greater difficulty with ADLs - c/w PT / OT - PFS on board for likely placement Hx of Endovascular stent at aortoiliac arteries -CT ab/pel 06/26: Small hiatal hernia. Status post cholecystectomy without biliary dilatation. No free air or free fluid. No adenopathy. Aortobiiliac stent noted. Since the prior study of 11/19/2013, the [place] right common iliac artery has increased in size and now measures approximately 3.5 cm in diameter. 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 - Discussed case with vascular surgery; on consultation; advised that this is likely a chronic problem; will continue to follow Low vitamin D - Vitamin D level noted - c/w supplement HTN - BP well controlled - stop fosinopril -will give amlodipine if needed. DLP - Currently not on any medications DM2 - c/w ISS COPD - No evidence of exacerbation - c/w inhaled therapy as ordered JUNIOR on CPAP - Not compliant with device Active smoker - refused to wear the nicotine patch. DVT prophylaxis - c/w SCDs Plan/VTE VTE Prophylaxis Ordered?: Yes VS, I&O, 24H, Fishbone Vital Signs/I&O Vital Signs Date Time Temp Pulse Resp B/P (MAP) Pulse Ox O2 Delivery O2 Flow Rate FiO2 07/03/18 22:00 98.2 66 20 147/75 (99) 97 I&O- Last 24 Hours up to 6 AM 07/04/18 06:00 Intake Total 1290 ml Balance 1290 ml Laboratory Data 24H LABS Laboratory Tests 2 07/03/18 05:43: Immature Granulocyte % (Auto) 0.1, White Blood Count 8.3, Red Blood Count 3.60L, Hemoglobin 10.7L, Hematocrit 33.7L, Mean Corpuscular Volume 93.6, Mean Corpuscular Hemoglobin 29.7, Mean Corpuscular Hemoglobin Concent 31.8L, Red Cell Distribution Width 14.0, Platelet Count 207, Neutrophils (%) (Auto) 51.9, Lymphocytes (%) (Auto) 31.5, Monocytes (%) (Auto) 10.0H, Eosinophils (%) (Auto) 6.0H, Basophils (%) (Auto) 0.5, Neutrophils # (Auto) 4.3, Lymphocytes # (Auto) 2.6, Monocytes # (Auto) 0.8, Eosinophils # (Auto) 0.5, Basophils # (Auto) 0.0, Nucleated Red Blood Cells % (auto) 0.0, Anion Gap 5L, Glomerular Filtration Rate 33.6, Blood Urea Nitrogen 35H, Creatinine 1.57H, Sodium Level 140, Potassium Level 4.7, Chloride Level 110H, Carbon Dioxide Level 25, Calcium Level 8.3L, Magnesium Level 1.9 07/03/18 06:38: Bedside Glucose (Misc Panel) 81L 07/03/18 11:30: Bedside Glucose (Misc Panel) 108 07/03/18 16:29: Bedside Glucose (Misc Panel) 93 CBC/BMP Laboratory Tests 07/03/18 05:43 Red Blood Count 3.60 L, Mean Corpuscular Volume 93.6, Mean Corpuscular Hemoglobin 29.7, Mean Corpuscular Hemoglobin Concent 31.8 L, Red Cell Distrib ution Width 14.0, Neutrophils (%) (Auto) 51.9, Lymphocytes (%) (Auto) 31.5, Monocytes (%) (Auto) 10.0 H, Eosinophils (%) (Auto) 6.0 H, Basophils (%) (Auto) 0.5, Neutrophils # (Auto) 4.3, Lymphocytes # (Auto) 2.6, Monocytes # (Auto) 0.8, Eosinophils # (Auto) 0.5, Basophils # (Auto) 0.0, Calcium Level 8.3 L Microbiology Microbiology 06/26/18 Blood Culture - Final, Complete NO GROWTH AFTER 5 DAYS 06/26/18 Blood Culture - Final, Complete NO GROWTH AFTER 5 DAYS 06/28/18 Gastrointestinal Tract Panel (PCR) - Final, Complete Norovirus 06/26/18 Respiratory Virus Panel (PCR) ([place]) - Final, Complete MARTINEZ BAUER MD Jul 04, 2018 01:31
[2018-07-04 06:00] VITALS: BP 132/67
[2018-07-04] MEDS: VITAMIN D 1,000 INTERNATIONAL UNITS TABLET PO SCH (08:32)
[2018-07-04] MEDS: NYSTATIN 100,000 UNITS/GM TOPICAL PWD 15 GM TOP SCH ×2 (08:32→20:11)
[2018-07-04] MEDS: amLODIPine 10 MG TAB PO SCH (08:32)
[2018-07-04 14:00] VITALS: BP 140/71
--- NOTE | 2018-07-04 21:29 | IPN ---
DATE: 07/02/2018 She was admitted with altered mental status, decline in function. She was found to have norovirus. She will not keep her IV fluids in due to dementia. She is rehydrating orally. Intake today was 1260. PHYSICAL EXAMINATION: She is sitting up, eating. Alert. LUNGS: Clear. HEART: Regular. ABDOMEN: Benign. Bowel sounds are positive. EXTREMITIES: Show no cyanosis, clubbing, or edema. SKIN: Warm and dry. LABORATORY STUDIES: White count 8.2, hemoglobin 10.8, hematocrit 33.4, platelets 195. Sodium 139, potassium 4.8, chloride 110, CO2 of 25, anion gap is 4, BUN is up slightly at 38, creatinine 1.5. IMPRESSION: 1. Norovirus infection. Continue oral hydration. No stools times 24 hours. 2. Acute kidney injury. Remain off WALI. Creatinine improved slightly again, down to 1.55. 3. Dementia. Patient will probably require placement and a vascular stent, followed by Dr. Marquez. 4. Hypertension. Blood pressure is stable. Continue amlodipine. 5. Diabetes. Continue sliding scale insulin.
[2018-07-05 06:00] VITALS: BP 103/63
[2018-07-05] MEDS: amLODIPine 10 MG TAB PO SCH (07:41)
[2018-07-05] MEDS: VITAMIN D 1,000 INTERNATIONAL UNITS TABLET PO SCH (07:42)
[2018-07-05] MEDS: NYSTATIN 100,000 UNITS/GM TOPICAL PWD 15 GM TOP SCH ×2 (07:42→19:55)
[2018-07-05 10:00] VITALS: BP 126/88
[2018-07-05 20:00] VITALS: BP 118/58
[2018-07-06 06:00] VITALS: BP 116/62
[2018-07-06 08:25] VITALS: BP 122/80
[2018-07-06] MEDS: amLODIPine 10 MG TAB PO SCH (08:25)
[2018-07-06] MEDS: NYSTATIN 100,000 UNITS/GM TOPICAL PWD 15 GM TOP SCH (08:25)
[2018-07-06] MEDS: VITAMIN D 1,000 INTERNATIONAL UNITS TABLET PO SCH (08:25)
--- NOTE | 2018-07-11 21:02 | DSES ---
DATE OF ADMISSION: 06/26/2018 DATE OF DISCHARGE: 07/06/2018 CONSULTANTS: Vascular surgery. PRIMARY CARE PROVIDER: Dr. Jericho Anderson DISCHARGE DIAGNOSES: 1. Norovirus infection. 2. Acute injury on chronic kidney disease. 3. Progressive dementia with intermittent episodes of delirium. 4. History of endovascular stent in aortoiliac artery. 5. Vitamin D deficiency. 6. Hypertension. 7. Dyslipidemia. 8. Type 2 diabetes. 9. Chronic obstructive pulmonary disease. 10. Obstructive sleep apnea, on CPAP. 11. Active tobacco abuse. HOSPITALIZATION COURSE: The patient is an 82-year-old female who presented to [facility] on 06/26/2018 with a complaint of vomiting and gradual deterioration of her functional status. Diagnostic workup initiated. Patient was admitted under hospitalist service for acute encephalopathy. CT imaging was obtained. 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 Case was discussed with vascular surgery. It seemed the findings were specialty sales representative of a chronic problem. Recommended continued observation. Patient was found to have norovirus infection causing significant diarrhea. Continued conservative management. Intravenous (IV) access has been difficult because patient's constantly removed the IV access. All the diagnostic workup came back unremarkable. Patient remains confused due to progressive dementia. Patient and family services (PFS) consulted for placement assistance. Acute kidney injury improved after the medication adjustments. Patient's gastrointestinal (GI) symptoms continued to improve with conservative medical management. Later, patient was placed on alternative level of care (ALC) status on 07/03/2018. food and nutrition services supervisor and correctional case records supervisor continued to assist in searching for placement. On 07/06/2018, patient discharged from [facility], and patient is going to [facility]. VITAL SIGNS: On day of discharge, temperature 97.5, pulse 63, respirations 19, blood pressure 116/62, pulse oximetry 96% in room air. LABORATORY DATA: Shows WBC 8.3, hemoglobin 10.7, hematocrit 33.7, platelet count is 207. Sodium is 140, potassium 4.7, chloride 110, carbon dioxide 25, BUN 35, creatinine is 1.57, GFR is 33.6, fasting glucose 87, calcium 8.3, magnesium 1.9. Urine toxicology from 06/26/2018 is negative. Blood alcohol level is negative. Urinalysis (UA) on 06/26/2018 is negative. Syphilis serology is nonreactive. Microbiology: Respiratory panel on 06/26/2018 is negative. Blood cultures from 06/26/2018 showed no growth after 5 days. GI panel on 06/28/2018 showed norovirus. IMAGING STUDIES: CT of the head without contrast on 06/26/2018 showed diffuse moderate atrophy. Small-vessel changes. Vascular calcifications. No acute intracranial abnormalities. Chest x-ray on 06/26/2018 showed mild cardiomegaly and stable chronic findings without acute infiltrate. CT of the abdomen and pelvis with IV contrast on 06/26/2018 showed small hiatal hernia. Status post cholecystectomy without biliary dilatation. No free air or free fluid. No adenopathy. Aortoiliac stent noted. The [place] right common iliac artery has increased in size and now measures approximately 3.5 cm in diameter. 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 DISCHARGE MEDICATIONS: - Tylenol 500 mg by mouth every 4 hours as needed - metformin 500 mg by mouth three times a day DISCHARGE INSTRUCTIONS: Discontinue line. Discharge patient to [facility]. Activity as tolerated. Fall precautions. Diabetic diet as tolerated. DISCHARGE CONDITION: Fair. DISCHARGE TIME: Greater than 30 minutes.
== END 2018-07-06 09:23 | DRG 884 ==
LOC: M ED 07:50 → M ED INP 11:02 → M MSPAV 13:33
PROVIDERS: ADMIT Internal Medicine; ATTEND Internal Medicine
DX: F03.90 Unspecified dementia, unspecified severity, without behavioral disturbance, psychotic disturbance, mood disturbance, and anxiety (principal); A08.11 Acute gastroenteropathy due to Norwalk agent; T82.898A Other specified complication of vascular prosthetic devices, implants and grafts, initial encounter; I12.9 Hypertensive chronic kidney disease with stage 1 through stage 4 chronic kidney disease, or unspecified chronic kidney disease; E78.5 Hyperlipidemia, unspecified; E11.22 Type 2 diabetes mellitus with diabetic chronic kidney disease; J44.9 Chronic obstructive pulmonary disease, unspecified; G47.33 Obstructive sleep apnea (adult) (pediatric); F17.210 Nicotine dependence, cigarettes, uncomplicated; E55.9 Vitamin D deficiency, unspecified; K21.9 Gastro-esophageal reflux disease without esophagitis; N18.3 Chronic kidney disease, stage 3 (moderate); Z79.84 Long term (current) use of oral hypoglycemic drugs; Z79.899 Other long term (current) drug therapy; Y83.1 Surgical operation with implant of artificial internal device as the cause of abnormal reaction of the patient, or of later complication, without mention of misadventure at the time of the procedure